=== PATIENT | male | born 1985 | race American Indian/Alaskan Native ===

== ENCOUNTER 2017-03-18 13:36 | Emergency (ER) | payer MEDICAID ==
[2017-03-18 14:27] LABS: Urine Drugs of Abuse Note Disclamer
[2017-03-18 14:43] LABS: Bilirubin,Urine NEG (Negative); Blood,Urine NEG (Negative); Ketones,Urine NEG (Negative); Leukocyte Esterase,Urine NEG (Negative); Nitrite,Urine NEG (Negative); Protein,Urine <15 mg/dL mg/dL (Negative); Urobilinogen,Urine < 2.0 mg/dL (<2.0)
[2017-03-18 14:48] LABS: Basophils % (Auto) 0.6 % (0.0-1.8); Eosinophils % (Auto) 6.4 % (0.0-4.3); Hematocrit 38.1 % (35.5-45.6); Hemoglobin 12.1 gm/dl (11.8-15.2); Mean Corpuscular HGB Conc 32 % (32-34); Mean Corpuscular Hemoglobin 28 pg (28-32); Mean Corpuscular Volume 87 fl (84-94); Platelet Count 121 K/mm3 (140-440); Red Blood Count 4.38 M/mm3 (3.65-5.03)
[2017-03-18 15:07] LABS: Anion Gap 18 mmol/L; BUN/Creatinine Ratio 30; Blood Urea Nitrogen 21 mg/dL (9-20); Calcium 9.2 mg/dL (8.4-10.2); Carbon Dioxide 26 mmol/L (22-30); Chloride 96.7 mmol/L (98-107); Glucose 302 mg/dL (75-100); Potassium 4.6 mmol/L (3.6-5.0); Sodium 136 mmol/L (137-145)
[2017-03-18] MEDS ORDERED: ATIVAN IM PRN (15:42)
[2017-03-18] MEDS ORDERED: ALUM-MAG HYDROX-SIMETH 200-200-20MG/5ML PO PRN (15:42)
[2017-03-18] MEDS ORDERED: TYLENOL PO PRN (15:42)
[2017-03-18] MEDS ORDERED: MILK OF MAGNESIA PO PRN (15:42)
--- NOTE | 2017-03-18 15:53 | Emergency Department Report ---
HPI - General Chief Complaint: Psych Time Seen by Provider: 03/18/17 14:24 - HPI HPI: The patient is a 32-year-old male presents for evaluation of mental health. The patient has history of schizophrenia. The patient and family members report that he has experienced auditory hallucinations instructed him to harm himself. The patient states that his symptoms have been severe and constant the past one day. The patient has been off of schizophrenia medications for weeks. The patient denies fever, headache, unexplained weight loss or weight gain, heat or cold intolerance, neuro deficits, homicidal ideations. The patient's family shares that the patient was discontinued from use on Depakote weeks ago, but that he never initiated the planned alternate medication. ED Past Medical Hx - Past Medical History Previous Medical History?: Yes Hx Diabetes: Yes Hx Psychiatric Treatment: Yes (schizophrenic, mild mr) - Social History Smoking Status: Never Smoker Substance Use Type: None - Medications Home Medications: Home Medications Medication Instructions Recorded Confirmed Last Taken Type Divalproex ER 1,000 mg PO QHS 08/13/15 03/18/17 Unknown History Haldol 10 mg PO BID 08/13/15 03/18/17 Unknown History metFORMIN 750 mg PO DAILY 08/13/15 03/18/17 Unknown History Benztropine [Cogentin] 2 mg PO BID 03/18/17 03/18/17 Unknown History ED Review of Systems ROS: Stated complaint: MENTAL HEALTH EVAUATION Other details as noted in HPI Constitutional: denies: fever ENT: denies: throat or neck pain Respiratory: denies: cough, shortness of breath Cardiovascular: denies: chest pain Endocrine: denies unexplained weight loss or gain Gastrointestinal: denies: abdominal pain, nausea Genitourinary: denies: dysuria Musculoskeletal: denies: leg swelling Skin: denies: rash Neurological: denies: headache Hematological/Lymphatic: denies: easy bleeding or easy bruising Psych: reports SI Physical Exam - Physical Exam Vital Signs: Vital Signs 03/18/17 14:07 Temperature 98.6 F Pulse Rate 80 Respiratory 18 Rate Blood Pressure 123/76 O2 Sat by Pulse 96 Oximetry Physical Exam: General: well-nourished, well-developed, no acute distress Head: Normocephalic, atraumatic Eyes: normal sclera ENT: Mucous membranes are pink and moist Neck: trachea midline, neck supple, No neck stiffness, no cervical adenopathy Respiratory: Breath sounds equal bilaterally, no wheezing, rales, or rhonchi Cardio: S1 and S2 present, no murmurs, rubs, gallops, capillary refill is brisk Abdomen: Normoactive bowel sounds, soft abdomen, no rigidity, no guarding or rebound tenderness Musc: No pitting edema Skin: No rash Neuro: no facial drooping, normal speech Psych: flat affect, patient delusional, poor insight, positive auditory hallucinations ED Course Vital Signs 03/18/17 14:07 Temperature 98.6 F Pulse Rate 80 Respiratory 18 Rate Blood Pressure 123/76 O2 Sat by Pulse 96 Oximetry ED Medical Decision Making - Lab Data Result diagrams: 03/18/17 14:29 03/18/17 14:29 - Medical Decision Making The patient was seen and examined by myself. The patient is placed on a box attacher and continuous pulse ox. On initial evaluation, the patient was found to be in no distress. Labs are obtained. Lab results are grossly unremarkable. The patient is medically clear. Mental health is consulted. Mental health evaluates the patient and agrees that the patient is at risk of harm to self. A 1013 is completed. The patient will be admitted to a psychiatric facility once bed placement is obtained. Critical care attestation.: If time is entered above; I have spent that time in minutes in the direct care of this critically ill patient, excluding procedure time. ED Disposition Clinical Impression: Acute schizophrenia episode Disposition: DC/TX-65 PSY HOSP/PSY UNIT Is pt being admited?: No Does the pt Need Aspirin: No Condition: Serious Referrals: STEFAN PAYNE [Other] - 3-5 Days Time of Disposition: 15:43
[2017-03-18] MEDS ORDERED: GLUCOPHAGE PO ONE (16:46)
[2017-03-18] MEDS: COGENTIN PO SCH (21:32)
[2017-03-19] MEDS ORDERED: GLUCOPHAGE PO SCH (10:00)
[2017-03-19] MEDS ORDERED: METFORMIN 750 MG PO SCH (10:00)
[2017-03-19] MEDS: COGENTIN PO SCH (11:12)
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
[2017-03-19 19:36] VITALS: BP 112/78
== END 2017-03-19 19:36 ==
LOC: ED 13:36 → EEVIPCON 13:36 → ED 03-19 19:36
DX: F23 Brief psychotic disorder (principal); R44.0 Auditory hallucinations; E11.9 Type 2 diabetes mellitus without complications
CPT/HCPCS: 36415; 80048; 80164; 80307; 81001; 82962; 85025; 99284; G0480; 80320

== ENCOUNTER 2017-04-06 23:54 | Emergency (ER) | payer MEDICAID ==
[2017-04-07 00:45] LABS: Bilirubin,Urine NEG (Negative); Blood,Urine NEG (Negative); Color,Urine Straw (Yellow); Mucus,Urine FEW /HPF; Nitrite,Urine NEG (Negative); Urobilinogen,Urine < 2.0 mg/dL (<2.0)
[2017-04-07 00:49] LABS: Basophils % (Auto) 0.9 % (0.0-1.8); Eosinophils # (Auto) 0.5 K/mm3 (0.0-0.4); Eosinophils % (Auto) 13.8 % (0.0-4.3); Hematocrit 38.4 % (35.5-45.6); Hemoglobin 12.2 gm/dl (11.8-15.2); Lymphocytes # (Auto) 1.2 K/mm3 (1.2-5.4); Lymphocytes % (Auto) 35.4 % (13.4-35.0); Mean Corpuscular HGB Conc 32 % (32-34); Mean Corpuscular Hemoglobin 28 pg (28-32); Mean Corpuscular Volume 87 fl (84-94); Monocytes # (Auto) 0.2 K/mm3 (0.0-0.8); Platelet Count 119 K/mm3 (140-440); Red Blood Count 4.41 M/mm3 (3.65-5.03); Red Cell Distribution Width 14.2 % (13.2-15.2)
[2017-04-07 00:51] LABS: Amphetamine Screen,Urine PRESUMPTIVE NEGATIVE; Benzodiazepines Screen,Urine PRESUMPTIVE NEGATIVE; Cannabinoid Screen,Urine PRESUMPTIVE NEGATIVE; Cocaine Screen,Urine PRESUMPTIVE NEGATIVE; Methadone Screen,Urine PRESUMPTIVE NEGATIVE; Opiate Screen,Urine PRESUMPTIVE NEGATIVE
[2017-04-07 00:55] LABS: BUN/Creatinine Ratio 30; Blood Urea Nitrogen 24 mg/dL (9-20); Calcium 9.2 mg/dL (8.4-10.2); Hemolysis Index 47
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
[2017-04-07] MEDS ORDERED: NACL 0.9% 1000 ML 2,000 ML IV ONE (06:33)
[2017-04-07 07:51] VITALS: BP 140/90
== END 2017-04-07 15:28 | disposition home or self-care (01) ==
LOC: ED 23:54 → EEVIPCON 23:54 → ED 04-07 15:28
DX: R45.1 Restlessness and agitation (principal); E86.0 Dehydration; E11.65 Type 2 diabetes mellitus with hyperglycemia; F20.9 Schizophrenia, unspecified; Z91.013 Allergy to seafood; Z91.012 Allergy to eggs; Z91.048 Other nonmedicinal substance allergy status
CPT/HCPCS: 36415; 80048; 80307; 81001; 82962; 85025; 96361; 96374; 99284; G0480; J7030; 80320; J1815

== ENCOUNTER 2017-04-16 13:12 | Emergency (ER) | payer MEDICAID, OTHER ==
[2017-04-16 14:26] VITALS: BP 122/73
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
== END 2017-04-16 20:20 | disposition home or self-care (01) ==
LOC: ED 13:12
DX: F39 Unspecified mood [affective] disorder (principal); E11.9 Type 2 diabetes mellitus without complications; F20.9 Schizophrenia, unspecified; Z91.013 Allergy to seafood; Z91.048 Other nonmedicinal substance allergy status; Z91.018 Allergy to other foods
CPT/HCPCS: 99283

== ENCOUNTER 2017-04-24 10:45 | Emergency (ER) | payer MEDICAID, OTHER ==
--- NOTE | 2017-04-24 11:05 | Emergency Department Report ---
ED Psych HPI - General Stated Complaint: MH Time Seen by Provider: 04/24/17 11:00 Source: family - History of Present Illness Initial Comments: Patient is 32 years old male history of schizophrenia brought by his mother. Mother stated that patient has been yelling, talking to himself being seen that are not there, breaking things in the house and very aggressive to her and to others. Patient is not communicating, he kept yelling and hitting on the wall. MD Complaint: altered mental status -: Gradual Associated Psychiatric Symptoms: auditory hallucinations, visual hallucinations , delusions Quality: constant - Related Data Home Medications Medication Instructions Recorded Confirmed Last Taken Divalproex ER 1,000 mg PO QHS 08/13/15 04/07/17 1 Day Ago ~04/06/17 Haldol 10 mg PO BID 08/13/15 04/07/17 1 Day Ago ~04/06/17 metFORMIN 750 mg PO DAILY 08/13/15 04/07/17 1 Day Ago ~04/06/17 Benztropine [Cogentin] 2 mg PO BID 03/18/17 04/07/17 1 Day Ago ~04/06/17 Allergies Allergy/AdvReac Type Severity Reaction Status Date / Time shrimp Allergy Mild Hives Verified 03/18/17 14:07 dog dander Allergy Hives Verified 03/18/17 14:07 rice Allergy Itching Verified 03/18/17 14:07 EGGS Allergy Rash Uncoded 08/14/15 10:48 ED Review of Systems ROS: Stated complaint: MH Other details as noted in HPI Comment: Unobtainable due to pts medical conditions ED Past Medical Hx - Past Medical History Hx Diabetes: Yes Hx Psychiatric Treatment: Yes (schizophrenic, mild mr) - Social History Smoking Status: Never Smoker - Medications Home Medications: Home Medications Medication Instructions Recorded Confirmed Last Taken Type Divalproex ER 1,000 mg PO QHS 08/13/15 04/07/17 1 Day Ago History ~04/06/17 Haldol 10 mg PO BID 08/13/15 04/07/17 1 Day Ago History ~04/06/17 metFORMIN 750 mg PO DAILY 08/13/15 04/07/17 1 Day Ago History ~04/06/17 Benztropine [Cogentin] 2 mg PO BID 03/18/17 04/07/17 1 Day Ago History ~04/06/17 ED Physical Exam - General General appearance: alert, anxious, other (is very agitated) - Head Head exam: Present: atraumatic, normocephalic, normal inspection - Eye Eye exam: Present: normal appearance, PERRL - ENT ENT exam: Present: normal exam, normal orophraynx, mucous membranes moist - Neck Neck exam: Present: normal inspection, full ROM. Absent: tenderness, meningismus, lymphadenopathy, thyromegaly - Respiratory Respiratory exam: Present: normal lung sounds bilaterally. Absent: respiratory distress, wheezes, rales, rhonchi, chest wall tenderness, accessory muscle use, decreased breath sounds, prolonged expiratory - Cardiovascular Cardiovascular Exam: Present: regular rate, normal rhythm, normal heart sounds - GI/Abdominal GI/Abdominal exam: Present: soft, normal bowel sounds. Absent: tenderness, guarding, rebound, rigid, mass, bruit, pulsatile mass - Extremities Exam Extremities exam: Present: normal inspection, full ROM, normal capillary refill - Back Exam Back exam: Present: normal inspection. Absent: tenderness, CVA tenderness (R), CVA tenderness (L) - Neurological Exam Neurological exam: Present: alert, normal gait, reflexes normal. Absent: motor sensory deficit - Psychiatric Psychiatric exam: Present: agitated, manic - Skin Skin exam: Present: warm, intact, normal color Critical care attestation.: If time is entered above; I have spent that time in minutes in the direct care of this critically ill patient, excluding procedure time. ED Disposition Clinical Impression: Acute psychosis Disposition: DC/TX-65 PSY HOSP/PSY UNIT Is pt being admited?: No Condition: Stable Referrals: PRIMARY CARE, [Primary Care Provider] - 3-5 Days
[2017-04-24] MEDS ORDERED: GEODON IM ONE (12:12)
[2017-04-24 12:21] LABS: Albumin 3.5 g/dL (3.9-5); BUN/Creatinine Ratio 20; Blood Urea Nitrogen 14 mg/dL (9-20); Calcium 9.8 mg/dL (8.4-10.2); Hemolysis Index 474
[2017-04-24 12:39] LABS: Alanine Aminotransferase 12 units/L (7-56)
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
[2017-04-24 14:03] LABS: Hematocrit 39.7 % (35.5-45.6); Hemoglobin 12.7 gm/dl (11.8-15.2); Mean Corpuscular HGB Conc 32 % (32-34); Mean Corpuscular Hemoglobin 27 pg (28-32); Mean Corpuscular Volume 86 fl (84-94); Platelet Count 125 K/mm3 (140-440); Red Blood Count 4.64 M/mm3 (3.65-5.03); Red Cell Distribution Width 14.1 % (13.2-15.2)
[2017-04-24 15:04] LABS: Basophils % (Manual) 0 % (0.0-1.8); Total Cells Counted 100; Toxic Vacuolation 1+
[2017-04-24 15:05] LABS: Anisocytosis 1+; Poikilocytosis Few; Tear Drop Cells Few
[2017-04-24 15:06] LABS: Platelet Estimate Cons
[2017-04-24] MEDS ORDERED: GLUCOPHAGE PO ONE (23:15)
[2017-04-25] MEDS: GLUCOPHAGE PO SCH (07:43)
[2017-04-25] MEDS ORDERED: TYLENOL ONE (08:58)
[2017-04-25] MEDS ORDERED: TYLENOL PO ONE (09:00)
[2017-04-25 09:48] LABS: Bacteria,Urine 1+ /HPF (Negative); Bilirubin,Urine NEG (Negative); Blood,Urine NEG (Negative); Color,Urine Amber (Yellow); Mucus,Urine 3+ /HPF; Nitrite,Urine NEG (Negative)
--- NOTE | 2017-04-25 10:06 | XRay Report ---
AP CHEST: HISTORY: Cough AP view of the chest demonstrates a normal mediastinal and cardiac contour with clear lungs and normal bony and soft tissue structures. IMPRESSION: Unremarkable AP chest.
[2017-04-25 11:09] LABS: Amphetamine Screen,Urine PRESUMPTIVE NEGATIVE; Cannabinoid Screen,Urine PRESUMPTIVE NEGATIVE; Cocaine Screen,Urine PRESUMPTIVE NEGATIVE; Methadone Screen,Urine PRESUMPTIVE NEGATIVE; Opiate Screen,Urine PRESUMPTIVE NEGATIVE
[2017-04-25 11:27] LABS: Benzodiazepines Screen,Urine PRESUMPTIVE POSITIVE
[2017-04-26] MEDS: GLUCOPHAGE PO SCH (08:20)
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
--- NOTE | 2017-04-26 13:57 | Emergency Department Report ---
Blank Doc - Documentation Documentation: She was seen by psych atomic welder several times. Patient is calm down significantly and was deemed safe to return home. Patient not having any suicidal or homicidal ideations. The patient had 1013 rescind it by me at 1355
[2017-04-26 15:32] VITALS: BP 112/70
== END 2017-04-26 15:33 | disposition home or self-care (01) ==
LOC: ED 10:45 → EEVIPCON 10:45 → ED 04-26 15:33
DX: F23 Brief psychotic disorder (principal); E11.9 Type 2 diabetes mellitus without complications; F20.9 Schizophrenia, unspecified; Z91.013 Allergy to seafood; Z91.012 Allergy to eggs
CPT/HCPCS: 36415; 71045; 80053; 80164; 80307; 81001; 82962; 85007; 85025; 96372; 99284; G0480; 80320

== ENCOUNTER 2017-07-29 01:09 | Emergency (ER) | payer MEDICAID ==
[2017-07-29 02:48] LABS: Bilirubin,Urine NEG (Negative); Blood,Urine NEG (Negative); Color,Urine Yellow (Yellow); Protein,Urine <15 mg/dL mg/dL (Negative); Urobilinogen,Urine < 2.0 mg/dL (<2.0); WBC,Urine < 1.0 /HPF (0.0-6.0)
[2017-07-29 02:51] LABS: Basophils % (Auto) 0.4 % (0.0-1.8); Eosinophils # (Auto) 0.4 K/mm3 (0.0-0.4); Eosinophils % (Auto) 9.9 % (0.0-4.3); Hematocrit 39.1 % (35.5-45.6); Hemoglobin 12.9 gm/dl (11.8-15.2); Lymphocytes # (Auto) 1.3 K/mm3 (1.2-5.4); Lymphocytes % (Auto) 35.4 % (13.4-35.0); Mean Corpuscular HGB Conc 33 % (32-34); Mean Corpuscular Hemoglobin 28 pg (28-32); Mean Corpuscular Volume 84 fl (84-94); Monocytes # (Auto) 0.4 K/mm3 (0.0-0.8); Monocytes % (Auto) 9.5 % (0.0-7.3); Platelet Count 116 K/mm3 (140-440); Red Blood Count 4.68 M/mm3 (3.65-5.03); Red Cell Distribution Width 14.4 % (13.2-15.2)
[2017-07-29 02:55] LABS: BUN/Creatinine Ratio 31; Blood Urea Nitrogen 25 mg/dL (9-20); Calcium 9.4 mg/dL (8.4-10.2); Hemolysis Index 11
[2017-07-29 02:58] LABS: Amphetamine Screen,Urine PRESUMPTIVE NEGATIVE; Benzodiazepines Screen,Urine PRESUMPTIVE NEGATIVE; Cannabinoid Screen,Urine PRESUMPTIVE NEGATIVE; Cocaine Screen,Urine PRESUMPTIVE NEGATIVE; Methadone Screen,Urine PRESUMPTIVE NEGATIVE; Opiate Screen,Urine PRESUMPTIVE NEGATIVE
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
--- NOTE | 2017-07-29 19:43 | XRay Report ---
FINAL REPORT EXAM: XR CHEST 1V AP HISTORY: edema TECHNIQUE: Single, portable chest x-ray. PRIORS: None. FINDINGS: Cardiac and mediastinal silhouette within normal limits. Lungs are mildly hypoinflated, with probable mild left basilar atelectasis. No significant vascular congestion, focal consolidation or apparent pneumothorax. Bony thorax grossly unremarkable. IMPRESSION: 1. No acute findings.
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
[2017-07-30 14:40] VITALS: BP 121/53
--- NOTE | 2017-07-30 15:38 | Emergency Department Report ---
HPI - General Chief Complaint: Psych Time Seen by Provider: 07/29/17 04:18 - HPI HPI: Patient's labs and vitals have been reviewed. He has been medically clear for some time. Evaluated by psychiatry and deemed safe to go home. He'll be discharged into his mother's care. Patient is directable and agreeable at this time. Cleared for discharge. ED Past Medical Hx - Past Medical History Previous Medical History?: Yes Hx Diabetes: Yes Hx Psychiatric Treatment: Yes (schizophrenic, mild mr) - Surgical History Past Surgical History?: No - Social History Smoking Status: Never Smoker - Medications Home Medications: Home Medications Medication Instructions Recorded Confirmed Last Taken Type Divalproex ER 1,000 mg PO QHS 08/13/15 07/29/17 1 Day Ago History ~04/06/17 Haldol 10 mg PO BID 08/13/15 07/29/17 1 Day Ago History ~04/06/17 metFORMIN 750 mg PO DAILY 08/13/15 07/29/17 1 Day Ago History ~04/06/17 Benztropine [Cogentin] 2 mg PO BID 03/18/17 07/29/17 1 Day Ago History ~04/06/17 ED Review of Systems ROS: Stated complaint: MENTAL HEALTH Other details as noted in HPI Physical Exam - Physical Exam Vital Signs: Vital Signs 07/29/17 07/30/17 07/30/17 21:00 09:07 10:00 Temperature 98.7 F 98.5 F Pulse Rate 82 95 H Respiratory 18 16 13 Rate Blood Pressure 109/70 121/53 [Left] O2 Sat by Pulse 97 97 Oximetry ED Course Vital Signs 07/29/17 07/30/17 07/30/17 21:00 09:07 10:00 Temperature 98.7 F 98.5 F Pulse Rate 82 95 H Respiratory 18 16 13 Rate Blood Pressure 109/70 121/53 [Left] O2 Sat by Pulse 97 97 Oximetry ED Medical Decision Making - Lab Data Result diagrams: 07/29/17 02:29 07/29/17 02:29 Critical care attestation.: If time is entered above; I have spent that time in minutes in the direct care of this critically ill patient, excluding procedure time. ED Disposition Clinical Impression: Adjustment disorder Disposition: DC-01 TO HOME OR SELFCARE Is pt being admited?: No Does the pt Need Aspirin: No Condition: Stable Referrals: DICRISTINA,ALETHEA, MD [Primary Care Provider] - 3-5 Days Print Language: PERSIAN
== END 2017-07-30 19:09 | disposition home or self-care (01) ==
LOC: ED 01:09
DX: F43.20 Adjustment disorder, unspecified (principal); E11.9 Type 2 diabetes mellitus without complications; F20.9 Schizophrenia, unspecified; Z91.013 Allergy to seafood; Z91.012 Allergy to eggs
CPT/HCPCS: 36415; 71045; 80048; 80164; 80307; 81001; 85025; 99284; G0480; 80320

== ENCOUNTER 2018-01-07 10:19 | Outpatient (CLI) | payer MEDICAID ==
[2018-01-07] MEDS ORDERED: XYLOCAINE TOPICAL 4% TP ONE ×2 (11:29→16:19)
== END 2018-01-07 10:20 | disposition home or self-care (01) ==
LOC: WOUND 10:19
PROVIDERS: ATTEND Surgery
DX: S81.801A Unspecified open wound, right lower leg, initial encounter (principal); S81.802A Unspecified open wound, left lower leg, initial encounter; S01.401A Unspecified open wound of right cheek and temporomandibular area, initial encounter; S51.801A Unspecified open wound of right forearm, initial encounter; X58.XXXA Exposure to other specified factors, initial encounter; Y93.89 Activity, other specified; Y92.89 Other specified places as the place of occurrence of the external cause; Y99.8 Other external cause status
CPT/HCPCS: 11042; 87075; 87116; G0463; 87076; 87186; 99215

== ENCOUNTER 2018-01-14 08:57 | Outpatient (CLI) | payer MEDICAID | END 2018-01-14 08:58 | disposition home or self-care (01) | LOC: WOUND 08:57 | PROVIDERS: ATTEND Surgery | DX: S81.801D Unspecified open wound, right lower leg, subsequent encounter (principal); S81.802D Unspecified open wound, left lower leg, subsequent encounter; S01.401D Unspecified open wound of right cheek and temporomandibular area, subsequent encounter; S51.801D Unspecified open wound of right forearm, subsequent encounter; X58.XXXD Exposure to other specified factors, subsequent encounter | CPT/HCPCS: 99214; G0463 ==

== ENCOUNTER 2018-01-21 08:58 | Outpatient (CLI) | payer MEDICAID | END 2018-01-21 08:59 | disposition home or self-care (01) | LOC: WOUND 08:58 | PROVIDERS: ATTEND Surgery | DX: S81.801D Unspecified open wound, right lower leg, subsequent encounter (principal); S81.802D Unspecified open wound, left lower leg, subsequent encounter; S01.401D Unspecified open wound of right cheek and temporomandibular area, subsequent encounter; S51.801D Unspecified open wound of right forearm, subsequent encounter; X58.XXXD Exposure to other specified factors, subsequent encounter | CPT/HCPCS: 99214; G0463 ==

== ENCOUNTER 2018-02-04 09:01 | Outpatient (CLI) | payer MEDICAID ==
[2018-02-04] MEDS ORDERED: XYLOCAINE TOPICAL 4% TP ONE ×2 (09:42→15:50)
[2018-02-04] MEDS ORDERED: AD OINTMENT TP ONE (10:10)
== END 2018-02-04 09:02 | disposition home or self-care (01) ==
LOC: WOUND 09:01
PROVIDERS: ATTEND Surgery
DX: S81.802D Unspecified open wound, left lower leg, subsequent encounter (principal); S01.401D Unspecified open wound of right cheek and temporomandibular area, subsequent encounter; S51.801D Unspecified open wound of right forearm, subsequent encounter; X58.XXXD Exposure to other specified factors, subsequent encounter
CPT/HCPCS: 99214; A6250; G0463

== ENCOUNTER 2018-04-24 07:57 | Outpatient (CLI) | payer MEDICAID | END 2018-04-24 07:58 | disposition home or self-care (01) | LOC: WOUND 07:57 ==

== ENCOUNTER 2018-04-29 08:13 | Outpatient (CLI) | payer MEDICAID ==
[2018-04-29] MEDS ORDERED: AD OINTMENT TP PRN (09:08)
== END 2018-04-29 08:14 | disposition home or self-care (01) ==
LOC: WOUND 08:13
PROVIDERS: ATTEND Surgery
DX: S41.002D Unspecified open wound of left shoulder, subsequent encounter (principal); L02.222 Furuncle of back [any part, except buttock and flank]; L02.423 Furuncle of right upper limb; F20.9 Schizophrenia, unspecified; X58.XXXD Exposure to other specified factors, subsequent encounter
CPT/HCPCS: 99214; A6250; G0463

== ENCOUNTER 2019-07-05 16:18 | Emergency (ER) | payer MEDICAID ==
[2019-07-05] MEDS ORDERED: ZIPRASIDONE MESYLATE 20 MG VIAL IM ONE ×2 (16:25→16:40)
[2019-07-05] MEDS ORDERED: LORazepam 2 MG/ML VIAL ONE (16:26)
[2019-07-05] MEDS ORDERED: LORazepam 2 MG/ML VIAL IV ONE (16:40)
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
[2019-07-05 21:16] LABS: Basophils % (Auto) 0.6 % (0.0-1.8); Eosinophils # (Auto) 0.2 K/mm3 (0.0-0.4); Eosinophils % (Auto) 5.1 % (0.0-4.3); Hematocrit 40.4 % (35.5-45.6); Hemoglobin 12.6 gm/dl (11.8-15.2); Lymphocytes # (Auto) 1.2 K/mm3 (1.2-5.4); Lymphocytes % (Auto) 29.5 % (13.4-35.0); Mean Corpuscular HGB Conc 31 % (32-34); Mean Corpuscular Volume 80 fl (84-94); Monocytes # (Auto) 0.4 K/mm3 (0.0-0.8); Monocytes % (Auto) 10.4 % (0.0-7.3); Platelet Count 155 K/mm3 (140-440); Red Blood Count 5.03 M/mm3 (3.65-5.03); Red Cell Distribution Width 15.8 % (13.2-15.2)
[2019-07-05 21:20] LABS: BUN/Creatinine Ratio 25; Blood Urea Nitrogen 20 mg/dL (9-20); Calcium 9.6 mg/dL (8.4-10.2); Hemolysis Index 6
[2019-07-06 07:47] VITALS: BP 122/83
[2019-07-06] MEDS ORDERED: QUEtiapine 200 MG TAB PO SCH (11:00)
[2019-07-06 11:56] LABS: Bilirubin,Urine NEG (Negative); Blood,Urine NEG (Negative); Color,Urine Yellow (Yellow); Mucus,Urine FEW /HPF; Protein,Urine <15 mg/dL mg/dL (Negative); Urobilinogen,Urine < 2.0 mg/dL (<2.0)
[2019-07-06 12:03] LABS: Amphetamine Screen,Urine PRESUMPTIVE NEGATIVE; Benzodiazepines Screen,Urine PRESUMPTIVE NEGATIVE; Cannabinoid Screen,Urine PRESUMPTIVE NEGATIVE; Cocaine Screen,Urine PRESUMPTIVE NEGATIVE; Methadone Screen,Urine PRESUMPTIVE NEGATIVE; Opiate Screen,Urine PRESUMPTIVE NEGATIVE
== END 2019-07-06 15:25 ==
LOC: ED 16:18
DX: R45.851 Suicidal ideations (principal); F29 Unspecified psychosis not due to a substance or known physiological condition; F20.9 Schizophrenia, unspecified; Z79.899 Other long term (current) drug therapy; Z91.012 Allergy to eggs; Z88.8 Allergy status to other drugs, medicaments and biological substances
CPT/HCPCS: 36415; 80048; 80307; 81001; 82962; 85025; 96372; 96374; 99285; J2060; J3486; 80320; G0480

== ENCOUNTER 2019-08-21 22:38 | Emergency (ER) | payer MEDICAID ==
--- NOTE | 2019-08-21 23:07 | Emergency Department Report ---
ED Psych HPI - General Chief Complaint: Medical Clearance Stated Complaint: SCHIZOPHRENIA EPISODE/MH Time Seen by Provider: 08/21/19 22:53 Source: EMS Mode of arrival: Ambulatory - History of Present Illness Initial Comments: Patient is 34 years old male with history of schizoaffective disorder and mild MR. Patient brought to the emergency room via EMS from home after family r eported that patient is having intermittent episode of outburst at home. Family informed EMS that patient is out of his medication for the last 2 days. In the emergency room patient is calm and cooperative and asking when he will be able to go back home. Patient denied suicidal or homicidal ideation. He also denied any auditory or visual hallucination. - Related Data Home Medications Medication Instructions Recorded Confirmed Last Taken Divalproex ER 1,000 mg PO QHS 08/13/15 07/06/19 1 Day Ago ~04/06/17 Haldol 10 mg PO BID 08/13/15 07/06/19 1 Day Ago ~04/06/17 metFORMIN 750 mg PO DAILY 08/13/15 07/06/19 1 Day Ago ~04/06/17 Benztropine [Cogentin] 2 mg PO BID 03/18/17 07/06/19 1 Day Ago ~04/06/17 Previous Rx's Medication Instructions Recorded Last Taken Type QUEtiapine [SEROquel] 200 mg PO BID #60 tablet 07/06/19 Unknown Rx Allergies Allergy/AdvReac Type Severity Reaction Status Date / Time shrimp Allergy Mild Hives Verified 03/18/17 14:07 dog dander Allergy Hives Verified 03/18/17 14:07 rice Allergy Itching Verified 03/18/17 14:07 EGGS Allergy Rash Uncoded 08/14/15 10:48 ED Review of Systems ROS: Stated complaint: SCHIZOPHRENIA EPISODE/MH Other details as noted in HPI Comment: All other systems reviewed and negative Constitutional: denies: chills, fever Respiratory: denies: cough, orthopnea, shortness of breath, SOB with exertion Cardiovascular: denies: chest pain, palpitations Gastrointestinal: denies: abdominal pain, nausea Musculoskeletal: denies: back pain Neurological: denies: headache, weakness, numbness, paresthesias Psychiatric: denies: anxiety, depression, auditory hallucinations, visual hallucinations, homicidal thoughts, suicidal thoughts ED Past Medical Hx - Past Medical History Previous Medical History?: Yes Hx Diabetes: Yes Hx Psychiatric Treatment: Yes (schizophrenic, mild mr) - Surgical History Past Surgical History?: No - Social History Smoking Status: Unknown if ever smoked - Medications Home Medications: Home Medications Medication Instructions Recorded Confirmed Last Taken Type Divalproex ER 1,000 mg PO QHS 08/13/15 07/06/19 1 Day Ago History ~04/06/17 Haldol 10 mg PO BID 08/13/15 07/06/19 1 Day Ago History ~04/06/17 metFORMIN 750 mg PO DAILY 08/13/15 07/06/19 1 Day Ago History ~04/06/17 Benztropine [Cogentin] 2 mg PO BID 03/18/17 07/06/19 1 Day Ago History ~04/06/17 QUEtiapine [SEROquel] 200 mg PO BID #60 tablet 07/06/19 Unknown Rx ED Physical Exam - General Limitations: Altered Mental Status General appearance: alert, in no apparent distress - Head Head exam: Present: atraumatic, normocephalic, normal inspection - Eye Eye exam: Present: normal appearance, PERRL - ENT ENT exam: Present: normal exam, normal orophraynx, mucous membranes moist - Neck Neck exam: Present: normal inspection, full ROM. Absent: tenderness, meningismus, lymphadenopathy, thyromegaly - Respiratory Respiratory exam: Present: normal lung sounds bilaterally - Cardiovascular Cardiovascular Exam: Present: regular rate, normal rhythm, normal heart sounds - GI/Abdominal GI/Abdominal exam: Present: soft, normal bowel sounds. Absent: distended, tenderness, guarding, rebound, rigid, organomegaly, mass, bruit, pulsatile mass, hernia - Extremities Exam Extremities exam: Present: normal inspection, full ROM, normal capillary refill. Absent: tenderness, pedal edema, calf tenderness - Back Exam Back exam: Present: normal inspection, full ROM. Absent: CVA tenderness (R), CVA tenderness (L) - Neurological Exam Neurological exam: Present: alert, oriented X3, CN II-XII intact, normal gait, reflexes normal. Absent: motor sensory deficit - Psychiatric Psychiatric exam: Present: normal mood. Absent: manic, homicidal ideation, suicidal ideation - Skin Skin exam: Present: warm, intact, normal color ED Course Vital Signs 08/21/19 23:02 Temperature 97.8 F Pulse Rate 90 Respiratory 16 Rate Blood Pressure 111/76 [Left] O2 Sat by Pulse 100 Oximetry Critical care attestation.: If time is entered above; I have spent that time in minutes in the direct care of this critically ill patient, excluding procedure time. ED Disposition Clinical Impression: Schizoaffective disorder Condition: Stable
[2019-08-22 00:13] LABS: Bilirubin,Urine NEG (Negative); Blood,Urine NEG (Negative); Color,Urine Straw (Yellow); Protein,Urine <15 mg/dL mg/dL (Negative); Urobilinogen,Urine < 2.0 mg/dL (<2.0)
[2019-08-22 00:15] LABS: Amphetamine Screen,Urine PRESUMPTIVE NEGATIVE; Benzodiazepines Screen,Urine PRESUMPTIVE NEGATIVE; Cannabinoid Screen,Urine PRESUMPTIVE NEGATIVE; Cocaine Screen,Urine PRESUMPTIVE NEGATIVE; Methadone Screen,Urine PRESUMPTIVE NEGATIVE; Opiate Screen,Urine PRESUMPTIVE NEGATIVE
[2019-08-22 00:51] LABS: Eosinophils # (Auto) 0.1 K/mm3 (0.0-0.4); Eosinophils % (Auto) 3.4 % (0.0-4.3); Hematocrit 39.8 % (35.5-45.6); Hemoglobin 12.9 gm/dl (11.8-15.2); Lymphocytes # (Auto) 1.1 K/mm3 (1.2-5.4); Lymphocytes % (Auto) 27.7 % (13.4-35.0); Mean Corpuscular HGB Conc 32 % (32-34); Mean Corpuscular Volume 78 fl (84-94); Monocytes # (Auto) 0.2 K/mm3 (0.0-0.8); Monocytes % (Auto) 6.1 % (0.0-7.3); Platelet Count 164 K/mm3 (140-440); Red Blood Count 5.11 M/mm3 (3.65-5.03); Red Cell Distribution Width 15.9 % (13.2-15.2)
[2019-08-22 08:28] LABS: BUN/Creatinine Ratio 16; Blood Urea Nitrogen 16 mg/dL (9-20); Calcium 9.5 mg/dL (8.4-10.2); Hemolysis Index 2
[2019-08-22 19:58] VITALS: BP 118/75
[2019-08-23] MEDS ORDERED: ZIPRASIDONE MESYLATE 20 MG VIAL IM ONE (03:19)
[2019-08-23] MEDS ORDERED: LORazepam 2 MG/ML VIAL IM ONE (03:20)
== END 2019-08-23 10:15 | disposition home or self-care (01) ==
LOC: ED 22:38
DX: F20.9 Schizophrenia, unspecified (principal); E11.9 Type 2 diabetes mellitus without complications; Z98.890 Other specified postprocedural states; Z79.899 Other long term (current) drug therapy; Z91.018 Allergy to other foods; Z88.8 Allergy status to other drugs, medicaments and biological substances; Z91.013 Allergy to seafood; Z79.84 Long term (current) use of oral hypoglycemic drugs
CPT/HCPCS: 36415; 80307; 81001; 82962; 93005; J2060; J3486

== ENCOUNTER 2020-01-19 16:28 | Emergency (ER) | payer MEDICAID ==
[2020-01-19] MEDS ORDERED: LORazepam 1 MG TAB PO ONE (16:51)
--- NOTE | 2020-01-19 16:54 | Emergency Department Report ---
HPI - General PUI?: No - HPI HPI: Room 17 The patient is a 35-year-old male with a history of schizophrenia and mental retardation presenting with a chief complaint of combative behavior. Patient brought in after being combative with family. EMS was called upon EMS arrival the patient began screaming and yelling and banging his head. Upon arrival to the ED the patient has been calm. During the interview the patient becomes tearful and states that he just wants to go home. Patient denies suicidal ideation. Patient denies any complaints <GARCÍA SILVEIRA - Last Filed: 01/19/20 22:55> <CARYN BRSAWELL - Last Filed: 01/21/20 12:11> - General Time Seen by Provider: 01/19/20 16:46 ED Past Medical Hx - Past Medical History Hx Diabetes: Yes (Diabetes) Hx Psychiatric Treatment: Yes (schizophrenia, mild mr) - Surgical History Past Surgical History?: No - Family History Family history: no significant - Social History Smoking Status: Never Smoker Substance Use Type: None (Denies illicit drug use) <GARCÍA SILVEIRA - Last Filed: 01/19/20 22:55> <CARYN BRASWELL - Last Filed: 01/21/20 12:11> - Medications Home Medications: Home Medications Medication Instructions Recorded Confirmed Last Taken Type metFORMIN 500 mg PO BID 08/13/15 01/20/20 1 Day Ago History ~04/06/17 Amitriptyline [Elavil] 50 mg PO DAILY 01/20/20 01/20/20 Unknown History Insulin Glargine [Lantus VIAL] 23 units SUB-Q QPM 01/20/20 01/20/20 Unknown History LORazepam [Lorazepam] 2 mg PO PRN PRN 01/20/20 01/20/20 Unknown History OLANZapine [Zyprexa] 15 mg PO QPM #30 tab 01/21/20 Unknown Rx OXcarbazepine [Trileptal] 300 mg PO BID #60 tab 01/21/20 Unknown Rx Ziprasidone [Geodon] 60 mg PO BID #60 cap 01/21/20 Unknown Rx ED Review of Systems ROS: Stated complaint: PSYCH EPISODE Other details as noted in HPI Constitutional: no symptoms reported Respiratory: no symptoms reported Endocrine: no symptoms reported Psychiatric: denies: suicidal thoughts <GARCÍA SILVEIRA - Last Filed: 01/19/20 22:55> ROS: Stated complaint: PSYCH EPISODE Other details as noted in HPI <MARBIN BRASWELLNETTA - Last Filed: 01/21/20 12:11> Physical Exam - Physical Exam Physical Exam: GENERAL: The patient is well-nourished male lying on stretcher not appearing to be in acute distress. [] HEENT: Normocephalic. Atraumatic. Extraocular motions are intact. Patient has moist mucous membranes. NECK: Supple. Trachea midline CHEST/LUNGS: Clear to auscultation. There is no respiratory distress noted. HEART/CARDIOVASCULAR: Regular. There is no tachycardia. There is no gallop rub or murmur. ABDOMEN: Abdomen is soft, nontender. Patient has normal bowel sounds. There is no abdominal distention. SKIN: There is no rash. There is no edema. There is no diaphoresis. NEURO: The patient is awake, alert, and oriented. The patient is cooperative. The patient has normal speech MUSCULOSKELETAL: There is no evidence of acute injury. <GARCÍA SILVEIRA - Last Filed: 01/19/20 22:55> - Physical Exam Vital Signs: Vital Signs 01/19/20 01/19/20 01/20/20 16:52 19:40 02:09 Temperature 98.2 F 97.6 F 97.6 F Pulse Rate 95 H 80 77 Respiratory 18 16 18 Rate Blood Pressure 128/83 138/86 143/88 [Right] O2 Sat by Pulse 100 100 99 Oximetry 01/20/20 01/20/20 01/20/20 08:56 14:10 20:05 Temperature 97.4 F L 97.9 F Pulse Rate 74 100 H 102 H Respiratory 18 16 18 Rate Blood Pressure 106/66 101/75 124/82 [Right] O2 Sat by Pulse 100 100 99 Oximetry 01/21/20 01/21/20 01/21/20 02:16 08:00 08:48 Temperature 97.6 F 98.6 F Pulse Rate 93 H 85 Respiratory 18 20 Rate Blood Pressure 118/73 114/71 [Right] O2 Sat by Pulse 99 100 Oximetry <MARBIN BRASWELLNETTA - Last Filed: 01/21/20 12:11> ED Course Vital Signs 01/19/20 01/19/20 01/20/20 16:52 19:40 02:09 Temperature 98.2 F 97.6 F 97.6 F Pulse Rate 95 H 80 77 Respiratory 18 16 18 Rate Blood Pressure 128/83 138/86 143/88 [Right] O2 Sat by Pulse 100 100 99 Oximetry 01/20/20 01/20/20 01/20/20 08:56 14:10 20:05 Temperature 97.4 F L 97.9 F Pulse Rate 74 100 H 102 H Respiratory 18 16 18 Rate Blood Pressure 106/66 101/75 124/82 [Right] O2 Sat by Pulse 100 100 99 Oximetry 01/21/20 01/21/20 01/21/20 02:16 08:00 08:48 Temperature 97.6 F 98.6 F Pulse Rate 93 H 85 Respiratory 18 20 Rate Blood Pressure 118/73 114/71 [Right] O2 Sat by Pulse 99 100 Oximetry <CARYN BRASWELL - Last Filed: 01/21/20 12:11> ED Medical Decision Making - Lab Data Result diagrams: 01/19/20 17:40 01/19/20 17:40 Laboratory Tests 01/19/20 01/19/20 01/19/20 17:40 17:40 17:40 WBC 3.8 L RBC 4.98 Hgb 13.8 Hct 41.9 MCV 84 MCH 28 MCHC 33 RDW 14.0 Plt Count 151 Lymph % (Auto) 25.4 [place] % (Auto) 5.7 Eos % (Auto) 2.7 Baso % (Auto) 0.6 Lymph # (Auto) 1.0 L [place] # (Auto) 0.2 Eos # (Auto) 0.1 Baso # (Auto) 0.0 Seg Neutrophils % 65.6 Seg Neutrophils # 2.5 Sodium 133 L Potassium 4.5 Chloride 94.6 L Carbon Dioxide 28 Anion Gap 15 BUN 18 Creatinine 0.7 L Estimated GFR > 60 BUN/Creatinine Ratio 26 Glucose 361 H Calcium 9.9 Urine Color Urine Turbidity Urine pH Ur Specific [place] Urine Protein Urine Glucose (UA) Urine Ketones Urine Blood Urine Nitrite Urine Bilirubin Urine Urobilinogen Ur Leukocyte Esterase Urine WBC (Auto) Urine RBC (Auto) Salicylates < 0.3 L Urine Opiates Screen Urine Methadone Screen Acetaminophen Ur Barbiturates Screen Ur Phencyclidine Scrn Ur Amphetamines Screen U Benzodiazepines Scrn Urine Cocaine Screen U Marijuana (THC) Screen Drugs of Abuse Note Plasma/Serum Alcohol 01/19/20 01/19/20 01/19/20 17:40 17:40 17:46 WBC RBC Hgb Hct MCV MCH MCHC RDW Plt Count Lymph % (Auto) [place] % (Auto) Eos % (Auto) Baso % (Auto) Lymph # (Auto) [place] # (Auto) Eos # (Auto) Baso # (Auto) Seg Neutrophils % Seg Neutrophils # Sodium Potassium Chloride Carbon Dioxide Anion Gap BUN Creatinine Estimated GFR BUN/Creatinine Ratio Glucose Calcium Urine Color Straw Urine Turbidity Clear Urine pH 7.0 Ur Specific [place] 1.028 Urine Protein <15 mg/dl Urine Glucose (UA) >=500 Urine Ketones Neg Urine Blood Neg Urine Nitrite Neg Urine Bilirubin Neg Urine Urobilinogen < 2.0 Ur Leukocyte Esterase Neg Urine WBC (Auto) 1.0 Urine RBC (Auto) 1.0 Salicylates Urine Opiates Screen Urine Methadone Screen Acetaminophen 5.0 L Ur Barbiturates Screen Ur Phencyclidine Scrn Ur Amphetamines Screen U Benzodiazepines Scrn Urine Cocaine Screen U Marijuana (THC) Screen Drugs of Abuse Note Plasma/Serum Alcohol < 0.01 01/19/20 17:46 WBC RBC Hgb Hct MCV MCH MCHC RDW Plt Count Lymph % (Auto) [place] % (Auto) Eos % (Auto) Baso % (Auto) Lymph # (Auto) [place] # (Auto) Eos # (Auto) Baso # (Auto) Seg Neutrophils % Seg Neutrophils # Sodium Potassium Chloride Carbon Dioxide Anion Gap BUN Creatinine Estimated GFR BUN/Creatinine Ratio Glucose Calcium Urine Color Urine Turbidity Urine pH Ur Specific [place] Urine Protein Urine Glucose (UA) Urine Ketones Urine Blood Urine Nitrite Urine Bilirubin Urine Urobilinogen Ur Leukocyte Esterase Urine WBC (Auto) Urine RBC (Auto) Salicylates Urine Opiates Screen Presumptive negative Urine Methadone Screen Presumptive negative Acetaminophen Ur Barbiturates Screen Presumptive negative Ur Phencyclidine Scrn Presumptive negative Ur Amphetamines Screen Presumptive negative U Benzodiazepines Scrn Presumptive negative Urine Cocaine Screen Presumptive negative U Marijuana (THC) Screen Presumptive negative Drugs of Abuse Note Disclamer Plasma/Serum Alcohol - Differential Diagnosis Schizophrenia, combative behavior <GARCÍA SILVEIRA - Last Filed: 01/19/20 22:55> - Lab Data Result diagrams: 01/19/20 17:40 01/20/20 22:30 - Medical Decision Making This gentleman has been cleared for discharge home with his mother by our psychiatric team. Psychiatric team concern for hypoglycemia. Patient has mild hyperglycemia without DKA symptoms. He is appropriate for discharge home. He is tolerating lunch at this moment. I have provided documentation and discharge order. <CARYN BRASWELL - Last Filed: 01/21/20 12:11> Critical care attestation.: If time is entered above; I have spent that time in minutes in the direct care of this critically ill patient, excluding procedure time. <GARCÍA SILVEIRA - Last Filed: 01/19/20 22:55> Critical care attestation.: If time is entered above; I have spent that time in minutes in the direct care of this critically ill patient, excluding procedure time. <CARYN BRASWELL - Last Filed: 01/21/20 12:11> ED Disposition <GARCÍA SILVEIRA - Last Filed: 01/19/20 22:55> Is pt being admited?: No Does the pt Need Aspirin: No <CARYN BRASWELL - Last Filed: 01/21/20 12:11> Clinical Impression: Schizophrenia, Combative behavior, Outbursts of explosive behavior Disposition: DC-01 TO HOME OR SELFCARE Condition: Stable Additional Instructions: Professional and Agency Contacts To help [facility](06/11) [place] Crisis Line: Suicide Prevention Line: Crisis Text Line: Text START to 720058 Emergency: 911 Outpatient COMMUNITY Behavioral Health Resources: DEKALB: [facility] [address] [place], [place] [address] [place]IN[place]: [facility] - [address] [place] [address] Sunday thru Sunday - 8am - 5pm TABITHA: [facility] Address: [address] [place] [address] Sunday thru Sunday- 7am-2pm [facility] Address: [address] [place] [address] Sunday thru Sunday: 8:30AM-5PM Prescriptions: Ziprasidone [Geodon] 60 mg PO BID #60 cap OXcarbazepine [Trileptal] 300 mg PO BID #60 tab OLANZapine [Zyprexa] 15 mg PO QPM #30 tab Referrals: PRIMARY CARE, [Primary Care Provider] - 3-5 Days
[2020-01-19] MEDS ORDERED: LORazepam 2 MG/ML VIAL IM PRN (16:59)
[2020-01-19] MEDS: diphenhydrAMINE 50 MG/ML VIAL IM PRN (17:29)
[2020-01-19] MEDS: HALOPERIDOL LACTATE 5 MG/1 ML INJ IM PRN (17:30)
[2020-01-19 17:58] LABS: Basophils % (Auto) 0.6 % (0.0-1.8); Eosinophils # (Auto) 0.1 K/mm3 (0.0-0.4); Eosinophils % (Auto) 2.7 % (0.0-4.3); Hematocrit 41.9 % (35.5-45.6); Hemoglobin 13.8 gm/dl (11.8-15.2); Lymphocytes % (Auto) 25.4 % (13.4-35.0); Mean Corpuscular HGB Conc 33 % (32-34); Mean Corpuscular Volume 84 fl (84-94); Monocytes # (Auto) 0.2 K/mm3 (0.0-0.8); Monocytes % (Auto) 5.7 % (0.0-7.3); Platelet Count 151 K/mm3 (140-440); Red Blood Count 4.98 M/mm3 (3.65-5.03)
[2020-01-19 18:16] LABS: Bilirubin,Urine NEG (Negative); Blood,Urine NEG (Negative); Color,Urine Straw (Yellow); Protein,Urine <15 mg/dL mg/dL (Negative); Urobilinogen,Urine < 2.0 mg/dL (<2.0)
[2020-01-19 18:17] LABS: Blood Urea Nitrogen 18 mg/dL (9-20); Calcium 9.9 mg/dL (8.4-10.2); Hemolysis Index 19
[2020-01-19 18:22] LABS: BUN/Creatinine Ratio 26
[2020-01-19 18:30] LABS: Amphetamine Screen,Urine PRESUMPTIVE NEGATIVE; Benzodiazepines Screen,Urine PRESUMPTIVE NEGATIVE; Cannabinoid Screen,Urine PRESUMPTIVE NEGATIVE; Cocaine Screen,Urine PRESUMPTIVE NEGATIVE; Methadone Screen,Urine PRESUMPTIVE NEGATIVE; Opiate Screen,Urine PRESUMPTIVE NEGATIVE
[2020-01-19] MEDS: ZIPRASIDONE 60 MG CAP PO SCH (22:43)
--- NOTE | 2020-01-20 09:17 | Consultation ---
History of Present Illness - Reason for Consult Consult date: 01/20/20 Reason for consult: MHE Requesting physician: GARCÍA SILVEIRA - History of Present Psychiatric Illness Per ED Provider: The patient is a 35-year-old male with a history of schizophrenia and mental retardation presenting with a chief complaint of combative behavior. Patient brought in after being combative with family. EMS was called upon EMS arrival the patient began screaming and yelling and banging his head. Upon arrival to the ED the patient has been calm. During the interview the patient becomes tearful and states that he just wants to go home. Patient denies suicidal ideation. Patient denies any complaints Per [facility]: [employer] Supervisor contacted pts mother, Candelaria Melgar, to obtain COL information related to pt. Mother reports that pt. was Acting up, throwing things away, crying, yelling, kicking chairs, and trying to fight (punching). Pt is triggered when something doesnt go his way or being redirected for wearing warm clothing and same clothes for several days. Pts Psychiatrists is Dr. Jiang in [place], [place] and is seen monthly. Pt is compliant with medications. Pt was seen on 01/19/2020 and received an additional medication. Pt. was prescribed amitriptyline 50mg. Denies previous inpatient psychiatric treatment, alcohol use, illicit drug use, and suicide attempt. Hx of hitting others. Reports hx of auditory hallucinations and most recent this afternoon. Per mother, voices tell pt. to break stuff or kick chairs. Pt has hx of Mild Mental Retardation, Schizophrenia, and Diabetes. Pt takes insulin and metformin to treat diabetes. PSYCH HPI Patient is a 35 year old male with extensive psyciatric history of mental retardation and schizophrenia who presented to the ED with Family with complaints of combative behavior and increased outburst. Patient in isolation, sleeping off and brely responds to verbal stimuli, history is limited due to patient's mental health PAST PSYCHIATRIC HISTORY Diagnoses: Mental retardation, schizophrenia Suicide attempts or Self-harm behavior: n/a Prior psychiatric hospitalizations: n/a Substance Abuse history: n/a Previous psychiatric medications tried: Yes Outpatient treatment: yes PAST MEDICAL HISTORY: n/a Family Psychiatric History: None reported or documented SOCIAL HISTORY Marital Status: single Living Arrangements: with family Employment Status: unemployed REVIEW OF SYSTEMS ROS cannot be reliably obtained from the patient due to pt mental condition MENTAL STATUS EXAMINATION Unable to complete Assessment and Plan - Psychiatric problem (1) Outbursts of explosive behavior Current Visit: Yes Status: Acute (2) Developmental disability Current Visit: Yes Status: Acute Treatment Plan Restart home medications History is limited due to patients current mental health. Recommends DD team to make recommendation MEDICATIONS: Risks, benefits and alternatives of medications discussed with the patient, questions answered and consent obtained from patient. PSYCHOTHERAPY: Supportive psychotherapy provided MEDICAL: Per primary team DELIRIUM PRECAUTIONS: Please re-orient patient frequently, keep lights on during the day, and minimize benzodiazepines and opiates as these medications could worsen patient's confusion. STUDENT DEAN: DISPOSITION: Refer to DD teams recommendation LEGAL STATUS: 1013 FOLLOW-UP: Will follow Thank you for the consult. Please contact with any questions and/or concerns. Medications and Allergies Allergies Allergy/AdvReac Type Severity Reaction Status Date / Time shrimp Allergy Mild Hives Verified 03/18/17 14:07 dog dander Allergy Hives Verified 03/18/17 14:07 grass pollen Allergy Unknown Verified 08/22/19 00:50 milk Allergy Unknown Verified 08/22/19 00:50 Milk Containing Products Allergy Unknown Verified 08/22/19 00:50 rice Allergy Itching Verified 03/18/17 14:07 EGGS Allergy Rash Uncoded 08/14/15 10:48 Home Medications Medication Instructions Recorded Confirmed Last Taken Type metFORMIN 500 mg PO DAILY 08/13/15 01/20/20 1 Day Ago History ~04/06/17 Ziprasidone [Geodon] 60 mg PO BID 08/22/19 01/20/20 01/20/20 History Amitriptyline [Elavil] 50 mg PO DAILY 01/20/20 01/20/20 Unknown History LORazepam [Lorazepam] 2 mg PO PRN PRN 01/20/20 01/20/20 Unknown History OLANZapine [Zyprexa] 20 mg PO QPM 01/20/20 01/20/20 Unknown History OXcarbazepine [Trileptal] 150 mg PO BID 01/20/20 01/20/20 Unknown History RX: Insulin Glargine [Lantus VIAL] 23 units SUB-Q QPM 01/20/20 01/20/20 Unknown History Active Meds: Active Medications Diphenhydramine HCl (Benadryl) 50 mg IM Q6H PRN PRN Reason: Agitation Last Admin: 01/19/20 17:29 Dose: 50 mg Documented by: Haloperidol Lactate (Haldol) 10 mg IM Q8H PRN PRN Reason: Agitation Last Admin: 01/19/20 17:30 Dose: 10 mg Documented by: Lorazepam (Ativan) 2 mg IM Q8H PRN PRN Reason: Agitation Last Admin: 01/19/20 17:30 Dose: 2 mg Documented by: Metformin HCl (Glucophage) 500 mg PO QAMDIAB JOHNATHAN Ziprasidone (Geodon) 60 mg PO BID JOHNATHAN Last Admin: 01/19/20 22:43 Dose: Not Given Documented by: Mental Status Exam - Vital signs Last Vital Signs Temp 97.4 F L 01/20/20 08:56 Pulse 74 01/20/20 08:56 Resp 18 01/20/20 08:56 BP 106/66 01/20/20 08:56 Pulse Ox 100 01/20/20 08:56 Results Result Diagrams: 01/19/20 17:40 01/19/20 17:40 Abnormal lab results 01/19/20 01/19/20 01/19/20 Range/Units 17:40 17:40 17:40 WBC 3.8 L (4.5-11.0) K/mm3 Lymph # (Auto) 1.0 L (1.2-5.4) K/mm3 Sodium 133 L (137-145) mmol/L Chloride 94.6 L (98-107) mmol/L Creatinine 0.7 L (0.8-1.3) mg/dL Glucose 361 H (75-100) mg/dL POC Glucose (70-105) Salicylates < 0.3 L (2.8-20.0) mg/dL Acetaminophen (10.0-30.0) ug/mL 01/19/20 01/20/20 Range/Units 17:40 05:14 WBC (4.5-11.0) K/mm3 Lymph # (Auto) (1.2-5.4) K/mm3 Sodium (137-145) mmol/L Chloride (98-107) mmol/L Creatinine (0.8-1.3) mg/dL Glucose (75-100) mg/dL POC Glucose 307 H (70-105) Salicylates (2.8-20.0) mg/dL Acetaminophen 5.0 L (10.0-30.0) ug/mL All other labs normal. Assessment and Plan - Psychiatric problem (1) Outbursts of explosive behavior Current Visit: Yes Status: Acute (2) Developmental disability Current Visit: Yes Status: Acute
[2020-01-20] MEDS: metFORMIN 500 MG TAB PO SCH (09:21)
[2020-01-20] MEDS: ZIPRASIDONE 60 MG CAP PO SCH ×2 (09:56→22:26)
[2020-01-20] MEDS ORDERED: NON-FORMULARY EACH (Metformin 500 MG) PO SCH (10:00)
[2020-01-20] MEDS: OXcarbazepine 150 MG TAB PO SCH ×2 (13:05→22:25)
[2020-01-20] MEDS ORDERED: INSULIN REGULAR, HUMAN 100 UNIT/ML 3ML VIAL ONE (13:17)
[2020-01-20] MEDS ORDERED: INSULIN REGULAR, HUMAN 100 UNIT/ML 3ML VIAL SUB-Q ONE (13:18)
[2020-01-20] MEDS ORDERED: INSULIN REGULAR, HUMAN 100 UNITS/1 ML ONE (13:20)
[2020-01-20 14:52] LABS: Blood Urea Nitrogen 17 mg/dL (9-20); Calcium 10.2 mg/dL (8.4-10.2); Hemolysis Index 21
[2020-01-20 14:53] LABS: BUN/Creatinine Ratio 24
[2020-01-20] MEDS ORDERED: ALPRAZolam 1 MG TAB ONE (16:19)
[2020-01-20] MEDS ORDERED: LORazepam 1 MG TAB PO ONE (16:21)
[2020-01-20] MEDS ORDERED: INSULIN GLARGINE 100 UNITS/ML SUB-Q SCH (16:30)
[2020-01-20] MEDS: diphenhydrAMINE 50 MG/ML VIAL IM PRN (18:11)
[2020-01-20] MEDS: HALOPERIDOL LACTATE 5 MG/1 ML INJ IM PRN (18:12)
[2020-01-20] MEDS ORDERED: SODIUM CHLORIDE 0.9% 1000 ML 1,000 ML IV ONE (22:23)
[2020-01-20 23:13] LABS: BUN/Creatinine Ratio 28; Blood Urea Nitrogen 22 mg/dL (9-20); Calcium 9.5 mg/dL (8.4-10.2); Hemolysis Index 31
[2020-01-21] MEDS ORDERED: SODIUM CHLORIDE 0.9% 1000 ML 1,000 ML IV ONE (00:13)
[2020-01-21] MEDS ORDERED: INSULIN REGULAR, HUMAN 100 UNIT/ML 3ML VIAL IV ONE (00:13)
[2020-01-21] MEDS ORDERED: INSULIN REGULAR, HUMAN 100 UNITS/1 ML ONE (00:19)
[2020-01-21] MEDS: metFORMIN 500 MG TAB PO SCH (07:56)
[2020-01-21 08:49] VITALS: BP 114/71
--- NOTE | 2020-01-21 10:10 | Progress Note ---
Subjective Date of service: 01/21/20 Subjective Comment: Per ED Nurse: Received pt in the room. Pt is alert and awake, calm and cooperative. Checked pt's vital signs and is stable, respiration even and non labored not in respiratory distress. Gave new green scrubs and gown to the pt and a blanket. Cleaned the pt's room and gave snack bag to the pt. Maintained safe and comfortable environment to the pt. Will continue to monitor the pt. Dr Elias stated to call mother, see if she was willing to accept pt back home since he has not been combative or disruptive. 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 Will call mother when DC paperwork is complete. Dr Elias aware. Psych Progress Patient seen in seclusion this AM, reports doing fine, says he would like to speak to his mother, wants to go home, and be outside of the room. Says he is not angry and willing to take all medicines. MENTAL STATUS EXAMINATION General Appearance and Behavior: Age appropriate, fair hygiene, wearing appropriate clothes, lying in bed, poor eye contact, cooperative polite/ with questioning. Cooperation: Participating/engaged Psychomotor Behavior: unremarkable and within normal limits Mood: Good Affect and affective range: congruent with mood Thought Process: Fluent/Logical Thought Content: Poverty Speech: Normal volume, Regular rate and rhythm Intellectual Functioning: Fair Suicidal Ideation: Denies SI Homicidal Ideation: Denies HI Impulse Control: Impaired Insight and Judgment: Impaired Memory: Prospective memory impaired Attention: Divided attention impaired Orientation: Alert, oriented Assessment and Plan - Psychiatric problem (1) Outbursts of explosive behavior Current Visit: Yes Status: Acute (2) Developmental disability Current Visit: Yes Status: Acute Treatment Plan Restart home medications History is limited due to patients current mental health. Recommends DD team to make recommendation MEDICATIONS: Risks, benefits and alternatives of medications discussed with the patient, questions answered and consent obtained from patient. PSYCHOTHERAPY: Supportive psychotherapy provided MEDICAL: Per primary team DELIRIUM PRECAUTIONS: Please re-orient patient frequently, keep lights on during the day, and minimize benzodiazepines and opiates as these medications could worsen patient's confusion. TECHNICAL SUPPORT REPRESENTATIVE: DISPOSITION: Outpt, mother agrees to have patient back home LEGAL STATUS: 1013 rescinded FOLLOW-UP: Will sign off Thank you for the consult. Please contact with any questions and/or concerns. Assessment and Plan - Patient Problems (1) Outbursts of explosive behavior Current Visit: Yes Status: Acute (2) Developmental disability Current Visit: Yes Status: Acute Medications and Allergies Allergies Allergy/AdvReac Type Severity Reaction Status Date / Time shrimp Allergy Mild Hives Verified 01/21/20 09:57 dog dander Allergy Hives Verified 01/21/20 09:57 grass pollen Allergy Unknown Verified 01/21/20 09:57 milk Allergy Unknown Verified 01/21/20 09:57 Milk Containing Products Allergy Unknown Verified 01/21/20 09:57 rice Allergy Itching Verified 01/21/20 09:57 EGGS Allergy Rash Uncoded 01/21/20 09:57 Home Medications Medication Instructions Recorded Confirmed Last Taken Type metFORMIN 500 mg PO BID 08/13/15 01/20/20 1 Day Ago History ~04/06/17 Ziprasidone [Geodon] 60 mg PO BID 08/22/19 01/20/20 01/20/20 History Amitriptyline [Elavil] 50 mg PO DAILY 01/20/20 01/20/20 Unknown History Insulin Glargine [Lantus VIAL] 23 units SUB-Q QPM 01/20/20 01/20/20 Unknown History LORazepam [Lorazepam] 2 mg PO PRN PRN 01/20/20 01/20/20 Unknown History OLANZapine [Zyprexa] 20 mg PO QPM 01/20/20 01/20/20 Unknown History OXcarbazepine [Trileptal] 150 mg PO BID 01/20/20 01/20/20 Unknown History Active Meds: Active Medications Diphenhydramine HCl (Benadryl) 50 mg IM Q6H PRN PRN Reason: Agitation Last Admin: 01/20/20 18:11 Dose: 50 mg Documented by: Haloperidol Lactate (Haldol) 10 mg IM Q8H PRN PRN Reason: Agitation Last Admin: 01/20/20 18:12 Dose: 10 mg Documented by: Insulin Glargine (Lantus) 23 units SUB-Q 1630 JOHNATHAN Last Admin: 01/20/20 16:19 Dose: 23 units Documented by: Lorazepam (Ativan) 2 mg IM Q8H PRN PRN Reason: Agitation Last Admin: 01/19/20 17:30 Dose: 2 mg Documented by: Metformin HCl (Glucophage) 500 mg PO QAMDIAB [facility] Last Admin: 01/21/20 07:56 Dose: 500 mg Documented by: Olanzapine (Zyprexa) 10 mg PO QHS [facility] Last Admin: 01/20/20 22:25 Dose: 10 mg Documented by: Oxcarbazepine (Trileptal) 300 mg PO BID [facility] Last Admin: 01/20/20 22:25 Dose: 300 mg Documented by: Ziprasidone (Geodon) 60 mg PO BID [facility] Last Admin: 01/20/20 22:26 Dose: 60 mg Documented by: Results - Results Labs/Vitals: Laboratory Last Values WBC 3.8 K/mm3 (4.5-11.0) L 01/19/20 17:40 RBC 4.98 M/mm3 (3.65-5.03) 01/19/20 17:40 Hgb 13.8 gm/dl (11.8-15.2) 01/19/20 17:40 Hct 41.9 % (35.5-45.6) 01/19/20 17:40 MCV 84 fl (84-94) 01/19/20 17:40 MCH 28 pg (28-32) 01/19/20 17:40 MCHC 33 % (32-34) 01/19/20 17:40 RDW 14.0 % (13.2-15.2) 01/19/20 17:40 Plt Count 151 K/mm3 (140-440) 01/19/20 17:40 Lymph % (Auto) 25.4 % (13.4-35.0) 01/19/20 17:40 [place] % (Auto) 5.7 % (0.0-7.3) 01/19/20 17:40 Eos % (Auto) 2.7 % (0.0-4.3) 01/19/20 17:40 Baso % (Auto) 0.6 % (0.0-1.8) 01/19/20 17:40 Lymph # (Auto) 1.0 K/mm3 (1.2-5.4) L 01/19/20 17:40 [place] # (Auto) 0.2 K/mm3 (0.0-0.8) 01/19/20 17:40 Eos # (Auto) 0.1 K/mm3 (0.0-0.4) 01/19/20 17:40 Baso # (Auto) 0.0 K/mm3 (0.0-0.1) 01/19/20 17:40 Seg Neutrophils % 65.6 % (40.0-70.0) 01/19/20 17:40 Seg Neutrophils # 2.5 K/mm3 (1.8-7.7) 01/19/20 17:40 VBG pH 7.337 (7.320-7.420) 01/20/20 22:30 Sodium 134 mmol/L (137-145) L 01/20/20 22:30 Potassium 5.2 mmol/L (3.6-5.0) H 01/20/20 22:30 Chloride 92.6 mmol/L (98-107) L 01/20/20 22:30 Carbon Dioxide 27 mmol/L (22-30) 01/20/20 22:30 Anion Gap 20 mmol/L 01/20/20 22:30 BUN 22 mg/dL (9-20) H 01/20/20 22:30 Creatinine 0.8 mg/dL (0.8-1.3) 01/20/20 22:30 Estimated GFR > 60 ml/min 01/20/20 22:30 BUN/Creatinine Ratio 28 % 01/20/20 22:30 Glucose 454 mg/dL (75-100) H 01/20/20 22:30 POC Glucose 291 (70-105) H 01/21/20 05:34 Calcium 9.5 mg/dL (8.4-10.2) 01/20/20 22:30 Urine Color Straw (Yellow) 01/19/20 17:46 Urine Turbidity Clear (Clear) 01/19/20 17:46 Urine pH 7.0 (5.0-7.0) 01/19/20 17:46 Ur Specific [place] 1.028 (1.003-1.030) 01/19/20 17:46 Urine Protein <15 mg/dl mg/dL (Negative) 01/19/20 17:46 Urine Glucose (UA) >=500 mg/dL (Negative) 01/19/20 17:46 Urine Ketones Neg mg/dL (Negative) 01/19/20 17:46 Urine Blood Neg (Negative) 01/19/20 17:46 Urine Nitrite Neg (Negative) 01/19/20 17:46 Urine Bilirubin Neg (Negative) 01/19/20 17:46 Urine Urobilinogen < 2.0 mg/dL (<2.0) 01/19/20 17:46 Ur Leukocyte Esterase Neg (Negative) 01/19/20 17:46 Urine WBC (Auto) 1.0 /HPF (0.0-6.0) 01/19/20 17:46 Urine RBC (Auto) 1.0 /HPF (0.0-6.0) 01/19/20 17:46 Salicylates < 0.3 mg/dL (2.8-20.0) L 01/19/20 17:40 Urine Opiates Screen Presumptive negative 01/19/20 17:46 Urine Methadone Screen Presumptive negative 01/19/20 17:46 Acetaminophen 5.0 ug/mL (10.0-30.0) L 01/19/20 17:40 Ur Barbiturates Screen Presumptive negative 01/19/20 17:46 Ur Phencyclidine Scrn Presumptive negative 01/19/20 17:46 Ur Amphetamines Screen Presumptive negative 01/19/20 17:46 U Benzodiazepines Scrn Presumptive negative 01/19/20 17:46 Urine Cocaine Screen Presumptive negative 01/19/20 17:46 U Marijuana (THC) Screen Presumptive negative 01/19/20 17:46 Drugs of Abuse Note Disclamer 01/19/20 17:46 Plasma/Serum Alcohol < 0.01 % (0-0.07) 01/19/20 17:40 Last Vital Signs Temp 98.6 F 01/21/20 08:48 Pulse 85 01/21/20 08:48 Resp 20 01/21/20 08:48 BP 114/71 01/21/20 08:48 Pulse Ox 100 01/21/20 08:48
--- NOTE | 2020-01-21 10:15 | Progress Note ---
Subjective - Reason for Consult Consult date: 01/21/20 Reason for consult: MHE Requesting physician: GARCÍA SILVEIRA - Chief Complaint Chief complaint: Per ED Nurse: Received pt in the room. Pt is alert and awake, calm and cooperative. Checked pt's vital signs and is stable, respiration even and non labored not in respiratory distress. Gave new green scrubs and gown to the pt and a blanket. Cleaned the pt's room and gave snack bag to the pt. Maintained safe and comfortable environment to the pt. Will continue to monitor the pt. Dr Elias stated to call mother, see if she was willing to accept pt back home since he has not been combative or disruptive. 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 Will call mother when DC paperwork is complete. Dr Elias aware. Psych Progress Patient seen in seclusion this AM, reports doing fine, says he would like to speak to his mother, wants to go home, and be outside of the room. Says he is not angry and willing to take all medicines. MENTAL STATUS EXAMINATION General Appearance and Behavior: Age appropriate, fair hygiene, wearing appropriate clothes, lying in bed, poor eye contact, cooperative polite/ with questioning. Cooperation: Participating/engaged Psychomotor Behavior: unremarkable and within normal limits Mood: Good Affect and affective range: congruent with mood Thought Process: Fluent/Logical Thought Content: Poverty Speech: Normal volume, Regular rate and rhythm Intellectual Functioning: Fair Suicidal Ideation: Denies SI Homicidal Ideation: Denies HI Impulse Control: Impaired Insight and Judgment: Impaired Memory: Prospective memory impaired Attention: Divided attention impaired Orientation: Alert, oriented Assessment and Plan - Psychiatric problem (1) Outbursts of explosive behavior Current Visit: Yes Status: Acute (2) Developmental disability Current Visit: Yes Status: Acute Treatment Plan Restart home medications History is limited due to patients current mental health. Recommends DD team to make recommendation MEDICATIONS: Risks, benefits and alternatives of medications discussed with the patient, questions answered and consent obtained from patient. PSYCHOTHERAPY: Supportive psychotherapy provided MEDICAL: Per primary team DELIRIUM PRECAUTIONS: Please re-orient patient frequently, keep lights on during the day, and minimize benzodiazepines and opiates as these medications could worsen patient's confusion. CRIMINAL PROFILER: DISPOSITION: Outpt, mother agrees to have patient back home. Pt to be discharged only when medically cleared due to lab abnormalities LEGAL STATUS: 1013 rescinded FOLLOW-UP: Will sign off Thank you for the consult. Please contact with any questions and/or concerns. Mental Status Exam - Vital signs Last Vital Signs Temp 98.6 F 01/21/20 08:48 Pulse 85 01/21/20 08:48 Resp 20 01/21/20 08:48 BP 114/71 01/21/20 08:48 Pulse Ox 100 01/21/20 08:48 Assessment and Plan - Patient Problems (1) Outbursts of explosive behavior Current Visit: Yes Status: Acute (2) Developmental disability Current Visit: Yes Status: Acute
[2020-01-21] MEDS: ZIPRASIDONE 60 MG CAP PO SCH (10:20)
[2020-01-21] MEDS: OXcarbazepine 150 MG TAB PO SCH (10:21)
== END 2020-01-21 14:11 | disposition home or self-care (01) ==
LOC: ED 16:28
DX: F20.9 Schizophrenia, unspecified (principal); E11.9 Type 2 diabetes mellitus without complications; Z91.018 Allergy to other foods; Z91.048 Other nonmedicinal substance allergy status; Z91.013 Allergy to seafood; Z79.899 Other long term (current) drug therapy
CPT/HCPCS: 36415; 80048; 80307; 81001; 82805; 82962; 85025; 96361; 96372; 96374; 99285; J1200; J1630; J2060; J7030; 80320; G0480; J1815

== ENCOUNTER 2020-01-21 23:26 | Emergency (ER) | payer MEDICAID ==
[2020-01-22] MEDS ORDERED: LORazepam 2 MG/ML VIAL ONE (00:31)
[2020-01-22] MEDS ORDERED: ZIPRASIDONE MESYLATE 20 MG VIAL IM ONE (00:31)
[2020-01-22 00:39] LABS: Basophils % (Auto) 0.6 % (0.0-1.8); Eosinophils # (Auto) 0.1 K/mm3 (0.0-0.4); Eosinophils % (Auto) 1.5 % (0.0-4.3); Hematocrit 40.6 % (35.5-45.6); Hemoglobin 13.3 gm/dl (11.8-15.2); Lymphocytes # (Auto) 1.3 K/mm3 (1.2-5.4); Lymphocytes % (Auto) 34.1 % (13.4-35.0); Mean Corpuscular HGB Conc 33 % (32-34); Mean Corpuscular Volume 83 fl (84-94); Monocytes # (Auto) 0.3 K/mm3 (0.0-0.8); Monocytes % (Auto) 7.6 % (0.0-7.3); Platelet Count 192 K/mm3 (140-440); Red Cell Distribution Width 13.7 % (13.2-15.2)
[2020-01-22] MEDS ORDERED: LORazepam 2 MG/ML VIAL IM ONE (00:40)
[2020-01-22] MEDS ORDERED: WATER FOR INJ Sterile (PF) 10 ML ONE (00:46)
[2020-01-22 00:57] LABS: Blood Urea Nitrogen 16 mg/dL (9-20); Calcium 9.9 mg/dL (8.4-10.2); Hemolysis Index 3
--- NOTE | 2020-01-22 01:00 | Emergency Department Report ---
ED General Adult HPI - General Chief complaint: Psych Stated complaint: MH EVAL Time Seen by Provider: 01/22/20 00:03 Source: patient, family Mode of arrival: Wheelchair Limitations: Other - Related Data Home Medications Medication Instructions Recorded Confirmed Last Taken metFORMIN 500 mg PO BID 08/13/15 01/20/20 1 Day Ago ~04/06/17 Amitriptyline [Elavil] 50 mg PO DAILY 01/20/20 01/20/20 Unknown Insulin Glargine [Lantus VIAL] 23 units SUB-Q QPM 01/20/20 01/20/20 Unknown LORazepam [Lorazepam] 2 mg PO PRN PRN 01/20/20 01/20/20 Unknown Previous Rx's Medication Instructions Recorded Last Taken Type OLANZapine [Zyprexa] 15 mg PO QPM #30 tab 01/21/20 Unknown Rx OXcarbazepine [Trileptal] 300 mg PO BID #60 tab 01/21/20 Unknown Rx Ziprasidone [Geodon] 60 mg PO BID #60 cap 01/21/20 Unknown Rx Allergies Allergy/AdvReac Type Severity Reaction Status Date / Time shrimp Allergy Mild Hives Verified 01/21/20 09:57 dog dander Allergy Hives Verified 01/21/20 09:57 grass pollen Allergy Unknown Verified 01/21/20 09:57 milk Allergy Unknown Verified 01/21/20 09:57 Milk Containing Products Allergy Unknown Verified 01/21/20 09:57 rice Allergy Itching Verified 01/21/20 09:57 EGGS Allergy Rash Uncoded 01/21/20 09:57 ED Review of Systems ROS: Stated complaint: EVAL Other details as noted in HPI Comment: All other systems reviewed and negative Constitutional: denies: chills, fever Eyes: denies: eye pain, eye discharge, vision change ENT: denies: ear pain, throat pain Respiratory: denies: cough, shortness of breath, wheezing Cardiovascular: denies: chest pain, palpitations Endocrine: no symptoms reported Gastrointestinal: denies: abdominal pain, nausea, diarrhea Genitourinary: denies: urgency, dysuria Musculoskeletal: denies: back pain, joint swelling, arthralgia Skin: denies: rash, lesions Neurological: denies: headache, weakness, paresthesias Psychiatric: denies: anxiety, depression Hematological/Lymphatic: denies: easy bleeding, easy bruising ED Past Medical Hx - Past Medical History Hx Diabetes: Yes (Diabetes) Hx Psychiatric Treatment: Yes (schizophrenia, mild mr) - Social History Smoking Status: Unknown if ever smoked - Medications Home Medications: Home Medications Medication Instructions Recorded Confirmed Last Taken Type metFORMIN 500 mg PO BID 08/13/15 01/20/20 1 Day Ago History ~04/06/17 Amitriptyline [Elavil] 50 mg PO DAILY 01/20/20 01/20/20 Unknown History Insulin Glargine [Lantus VIAL] 23 units SUB-Q QPM 01/20/20 01/20/20 Unknown History LORazepam [Lorazepam] 2 mg PO PRN PRN 01/20/20 01/20/20 Unknown History OLANZapine [Zyprexa] 15 mg PO QPM #30 tab 01/21/20 Unknown Rx OXcarbazepine [Trileptal] 300 mg PO BID #60 tab 01/21/20 Unknown Rx Ziprasidone [Geodon] 60 mg PO BID #60 cap 01/21/20 Unknown Rx ED Physical Exam - General Limitations: Other General appearance: alert, in no apparent distress - Head Head exam: Present: atraumatic, normocephalic - Eye Eye exam: Present: normal appearance, PERRL, EOMI - ENT ENT exam: Present: mucous membranes moist - Neck Neck exam: Present: normal inspection - Respiratory Respiratory exam: Present: normal lung sounds bilaterally. Absent: respiratory distress - Cardiovascular Cardiovascular Exam: Present: regular rate, normal rhythm. Absent: systolic murmur, diastolic murmur, rubs, gallop - GI/Abdominal GI/Abdominal exam: Present: soft, normal bowel sounds. Absent: distended, tenderness - Rectal Rectal exam: Present: deferred - Extremities Exam Extremities exam: Present: normal inspection - Back Exam Back exam: Present: normal inspection - Neurological Exam Neurological exam: Present: alert, oriented X3, CN II-XII intact. Absent: motor sensory deficit - Psychiatric Psychiatric exam: Present: normal affect, normal mood - Skin Skin exam: Present: warm, dry, intact, normal color. Absent: rash ED Medical Decision Making - Lab Data Result diagrams: 01/21/20 23:49 Critical care attestation.: If time is entered above; I have spent that time in minutes in the direct care o f this critically ill patient, excluding procedure time. ED Disposition Condition: Stable Referrals: PRIMARY CARE,MD [Primary Care Provider] - 3-5 Days
[2020-01-22 01:20] LABS: BUN/Creatinine Ratio 23
--- NOTE | 2020-01-22 01:39 | Emergency Department Report ---
ED General Adult HPI - General Chief complaint: Psych Stated complaint: MH EVAL Time Seen by Provider: 01/22/20 00:03 Source: patient, family Mode of arrival: Wheelchair Limitations: Other - History of Present Illness Initial comments: The patient presents to the emergency department with a chief complaint of auditory hallucinations. Per the patient's brother he states that the patient has been hearing voices and responding to them. While patient was in triage he began to scream and was attempting to tow picker which he had to throw it. Patient denied without history. -: This evening Severity scale (0 -10): 0 Consistency: constant Improves with: none Worsens with: none Associated Symptoms: denies other symptoms Treatments Prior to Arrival: none - Related Data Home Medications Medication Instructions Recorded Confirmed Last Taken metFORMIN 500 mg PO BID 08/13/15 01/20/20 1 Day Ago ~04/06/17 Amitriptyline [Elavil] 50 mg PO DAILY 01/20/20 01/20/20 Unknown Insulin Glargine [Lantus VIAL] 23 units SUB-Q QPM 01/20/20 01/20/20 Unknown LORazepam [Lorazepam] 2 mg PO PRN PRN 01/20/20 01/20/20 Unknown Previous Rx's Medication Instructions Recorded Last Taken Type OLANZapine [Zyprexa] 15 mg PO QPM #30 tab 01/21/20 Unknown Rx OXcarbazepine [Trileptal] 300 mg PO BID #60 tab 01/21/20 Unknown Rx Ziprasidone [Geodon] 60 mg PO BID #60 cap 01/21/20 Unknown Rx Allergies Allergy/AdvReac Type Severity Reaction Status Date / Time shrimp Allergy Mild Hives Verified 01/21/20 09:57 dog dander Allergy Hives Verified 01/21/20 09:57 grass pollen Allergy Unknown Verified 01/21/20 09:57 milk Allergy Unknown Verified 01/21/20 09:57 Milk Containing Products Allergy Unknown Verified 01/21/20 09:57 rice Allergy Itching Verified 01/21/20 09:57 EGGS Allergy Rash Uncoded 01/21/20 09:57 ED Review of Systems ROS: Stated complaint: MH EVAL Other details as noted in HPI Constitutional: denies: chills, fever Eyes: denies: eye pain, eye discharge, vision change ENT: denies: ear pain, throat pain Respiratory: denies: cough, shortness of breath, wheezing Cardiovascular: denies: chest pain, palpitations Endocrine: no symptoms reported Gastrointestinal: denies: abdominal pain, nausea, diarrhea Genitourinary: denies: urgency, dysuria Musculoskeletal: denies: back pain, joint swelling, arthralgia Skin: denies: rash, lesions Neurological: denies: headache, weakness, paresthesias Psychiatric: denies: anxiety, depression Hematological/Lymphatic: denies: easy bleeding, easy bruising ED Past Medical Hx - Past Medical History Hx Diabetes: Yes (Diabetes) Hx Psychiatric Treatment: Yes (schizophrenia, mild mr) - Social History Smoking Status: Unknown if ever smoked - Medications Home Medications: Home Medications Medication Instructions Recorded Confirmed Last Taken Type metFORMIN 500 mg PO BID 08/13/15 01/20/20 1 Day Ago History ~04/06/17 Amitriptyline [Elavil] 50 mg PO DAILY 01/20/20 01/20/20 Unknown History Insulin Glargine [Lantus VIAL] 23 units SUB-Q QPM 01/20/20 01/20/20 Unknown History LORazepam [Lorazepam] 2 mg PO PRN PRN 01/20/20 01/20/20 Unknown History OLANZapine [Zyprexa] 15 mg PO QPM #30 tab 01/21/20 Unknown Rx OXcarbazepine [Trileptal] 300 mg PO BID #60 tab 01/21/20 Unknown Rx Ziprasidone [Geodon] 60 mg PO BID #60 cap 01/21/20 Unknown Rx ED Physical Exam - General Limitations: Other General appearance: alert, in no apparent distress - Head Head exam: Present: atraumatic, normocephalic - Eye Eye exam: Present: normal appearance, PERRL, EOMI - ENT ENT exam: Present: mucous membranes moist - Neck Neck exam: Present: normal inspection - Respiratory Respiratory exam: Present: normal lung sounds bilaterally. Absent: respiratory distress - Cardiovascular Cardiovascular Exam: Present: regular rate, normal rhythm. Absent: systolic murmur, diastolic murmur, rubs, gallop - GI/Abdominal GI/Abdominal exam: Present: soft, normal bowel sounds. Absent: distended, tenderness - Rectal Rectal exam: Present: deferred - Extremities Exam Extremities exam: Present: normal inspection - Back Exam Back exam: Present: normal inspection - Neurological Exam Neurological exam: Present: alert, oriented X3, CN II-XII intact. Absent: motor sensory deficit - Psychiatric Psychiatric exam: Present: normal affect, normal mood - Skin Skin exam: Present: warm, dry, intact, normal color. Absent: rash ED Course Vital Signs 01/21/20 23:52 Temperature 98.9 F Pulse Rate 110 H Respiratory 18 Rate Blood Pressure 134/90 O2 Sat by Pulse 99 Oximetry ED Medical Decision Making - Lab Data Result diagrams: 01/21/20 23:49 01/21/20 23:49 Lab Results 01/21/20 01/21/20 01/21/20 Range/Units 23:49 23:49 23:49 WBC (4.5-11.0) K/mm3 RBC (3.65-5.03) M/mm3 Hgb (11.8-15.2) gm/dl Hct (35.5-45.6) % MCV (84-94) fl MCH (28-32) pg MCHC (32-34) % RDW (13.2-15.2) % Plt Count (140-440) K/mm3 Lymph % (Auto) (13.4-35.0) % [place] % (Auto) (0.0-7.3) % Eos % (Auto) (0.0-4.3) % Baso % (Auto) (0.0-1.8) % Lymph # (Auto) (1.2-5.4) K/mm3 [place] # (Auto) (0.0-0.8) K/mm3 Eos # (Auto) (0.0-0.4) K/mm3 Baso # (Auto) (0.0-0.1) K/mm3 Seg Neutrophils % (40.0-70.0) % Seg Neutrophils # (1.8-7.7) K/mm3 Sodium 137 (137-145) mmol/L Potassium 3.8 D (3.6-5.0) mmol/L Chloride 96.1 L (98-107) mmol/L Carbon Dioxide 21 L (22-30) mmol/L Anion Gap 24 mmol/L BUN 16 (9-20) mg/dL Creatinine 0.7 L (0.8-1.3) mg/dL Estimated GFR > 60 ml/min BUN/Creatinine Ratio 23 % Glucose 199 H (75-100) mg/dL Calcium 9.9 (8.4-10.2) mg/dL Salicylates < 0.3 L (2.8-20.0) mg/dL Acetaminophen 5.0 L (10.0-30.0) ug/mL Plasma/Serum Alcohol (0-0.07) % 01/21/20 01/21/20 Range/Units 23:49 23:49 WBC 3.8 L (4.5-11.0) K/mm3 RBC 4.90 (3.65-5.03) M/mm3 Hgb 13.3 (11.8-15.2) gm/dl Hct 40.6 (35.5-45.6) % MCV 83 L (84-94) fl MCH 27 L (28-32) pg MCHC 33 (32-34) % RDW 13.7 (13.2-15.2) % Plt Count 192 (140-440) K/mm3 Lymph % (Auto) 34.1 (13.4-35.0) % [place] % (Auto) 7.6 H (0.0-7.3) % Eos % (Auto) 1.5 (0.0-4.3) % Baso % (Auto) 0.6 (0.0-1.8) % Lymph # (Auto) 1.3 (1.2-5.4) K/mm3 [place] # (Auto) 0.3 (0.0-0.8) K/mm3 Eos # (Auto) 0.1 (0.0-0.4) K/mm3 Baso # (Auto) 0.0 (0.0-0.1) K/mm3 Seg Neutrophils % 56.2 (40.0-70.0) % Seg Neutrophils # 2.1 (1.8-7.7) K/mm3 Sodium (137-145) mmol/L Potassium (3.6-5.0) mmol/L Chloride (98-107) mmol/L Carbon Dioxide (22-30) mmol/L Anion Gap mmol/L BUN (9-20) mg/dL Creatinine (0.8-1.3) mg/dL Estimated GFR ml/min BUN/Creatinine Ratio % Glucose (75-100) mg/dL Calcium (8.4-10.2) mg/dL Salicylates (2.8-20.0) mg/dL Acetaminophen (10.0-30.0) ug/mL Plasma/Serum Alcohol < 0.01 (0-0.07) % - Medical Decision Making Patient became agitated in the ED so was given [place] Critical care attestation.: If time is entered above; I have spent that time in minutes in the direct care of this critically ill patient, excluding procedure time. ED Disposition Clinical Impression: Agitation Disposition: [id number]/TX-[id number] PSY HOSP/PSY UNIT Is pt being admited?: No Does the pt Need Aspirin: No Condition: Stable Referrals: PRIMARY CARE, [Primary Care Provider] - 3-5 Days
[2020-01-22] MEDS ORDERED: HALOPERIDOL LACTATE 5 MG/1 ML INJ IM ONE (06:42)
[2020-01-22 08:06] VITALS: BP 139/95
[2020-01-22 08:58] LABS: Bilirubin,Urine NEG (Negative); Blood,Urine NEG (Negative); Color,Urine Yellow (Yellow); Mucus,Urine FEW /HPF; Protein,Urine <15 mg/dL mg/dL (Negative); Urobilinogen,Urine < 2.0 mg/dL (<2.0)
[2020-01-22 09:04] LABS: Amphetamine Screen,Urine PRESUMPTIVE NEGATIVE; Benzodiazepines Screen,Urine PRESUMPTIVE NEGATIVE; Cannabinoid Screen,Urine PRESUMPTIVE NEGATIVE; Cocaine Screen,Urine PRESUMPTIVE NEGATIVE; Methadone Screen,Urine PRESUMPTIVE NEGATIVE; Opiate Screen,Urine PRESUMPTIVE NEGATIVE
--- NOTE | 2020-01-22 12:30 | Consultation ---
History of Present Illness - Reason for Consult Consult date: 01/22/20 Reason for consult: MHE Requesting physician: DANE STEPHENS - History of Present Psychiatric Illness Psych Progress Patient seen and evaluated by me last 2 days, was discharged and came back to ED. I spoke with mom who is patients legal guardian, she says patient behavior was fine when he got home but sometimes he remembers somethings and says some things that has happened in the past and she feels he needs therapy. Mother reports she does not want patient to be placed in mental health facility because he gets worse whenever he leaves there, she only wants therapy where someone is able to talk to him, I informed mom, we do not provide therapy services in ED, it would be an outpt service and what we can do is place him to psych facility w ho can determine care prognosis but mother declines and request outpt psych therapy counselling information. MENTAL STATUS EXAMINATION General Appearance and Behavior: Age appropriate, fair hygiene, wearing appropriate clothes, lying in bed, poor eye contact, cooperative polite/ with questioning. Cooperation: Participating/engaged Psychomotor Behavior: unremarkable and within normal limits Mood: Good Affect and affective range: congruent with mood Thought Process: Fluent/Logical Thought Content: Poverty Speech: Normal volume, Regular rate and rhythm Intellectual Functioning: Fair Suicidal Ideation: Denies SI Homicidal Ideation: Denies HI Impulse Control: Impaired Insight and Judgment: Impaired Memory: Prospective memory impaired Attention: Divided attention impaired Orientation: Alert, oriented Assessment and Plan - Psychiatric problem (1) Outbursts of explosive behavior Current Visit: Yes Status: Acute (2) Developmental disability Current Visit: Yes Status: Acute Treatment Plan Restart home medications History is limited due to patients current mental health. Recommends DD team to make recommendation MEDICATIONS: Risks, benefits and alternatives of medications discussed with the patient, questions answered and consent obtained from patient. PSYCHOTHERAPY: Supportive psychotherapy provided MEDICAL: Per primary team DELIRIUM PRECAUTIONS: Please re-orient patient frequently, keep lights on during the day, and minimize benzodiazepines and opiates as these medications could worsen patient's confusion. [employer]: DISPOSITION: Outpt, mother agrees to have patient back home, does not want patient placed to mental health facility. LEGAL STATUS: Voluntary FOLLOW-UP: Will sign off Thank you for the consult. Please contact with any questions and/or concerns. Medications and Allergies Allergies Allergy/AdvReac Type Severity Reaction Status Date / Time shrimp Allergy Mild Hives Verified 10/07/20 09:57 dog dander Allergy Hives Verified 01/21/20 09:57 grass pollen Allergy Unknown Verified 01/21/20 09:57 milk Allergy Unknown Verified 01/21/20 09:57 Milk Containing Products Allergy Unknown Verified 01/21/20 09:57 rice Allergy Itching Verified 01/21/20 09:57 EGGS Allergy Rash Uncoded 01/21/20 09:57 Home Medications Medication Instructions Recorded Confirmed Last Taken Type metFORMIN 500 mg PO BID 08/13/15 01/20/20 1 Day Ago History ~04/06/17 Amitriptyline [Elavil] 50 mg PO DAILY 01/20/20 01/20/20 Unknown History Insulin Glargine [Lantus VIAL] 23 units SUB-Q QPM 01/20/20 01/20/20 Unknown History LORazepam [Lorazepam] 2 mg PO PRN PRN 01/20/20 01/20/20 Unknown History OLANZapine [Zyprexa] 15 mg PO QPM #30 tab 01/21/20 Unknown Rx OXcarbazepine [Trileptal] 300 mg PO BID #60 tab 01/21/20 Unknown Rx Ziprasidone [Geodon] 60 mg PO BID #60 cap 01/21/20 Unknown Rx Mental Status Exam - Vital signs Last Vital Signs Temp 98.3 F 01/22/20 08:05 Pulse 80 01/22/20 08:05 Resp 20 01/22/20 08:05 BP 139/95 01/22/20 08:05 Pulse Ox 100 01/22/20 08:05 Results Result Diagrams: 01/21/20 23:49 01/21/20 23:49 Abnormal lab results 01/21/20 01/21/20 01/21/20 Range/Units 23:49 23:49 23:49 WBC (4.5-11.0) K/mm3 MCV (84-94) fl MCH (28-32) pg [place] % (Auto) (0.0-7.3) % Chloride 96.1 L (98-107) mmol/L Carbon Dioxide 21 L (22-30) mmol/L Creatinine 0.7 L (0.8-1.3) mg/dL Glucose 199 H (75-100) mg/dL Urine WBC (Auto) (0.0-6.0) /HPF Salicylates < 0.3 L (2.8-20.0) mg/dL Acetaminophen 5.0 L (10.0-30.0) ug/mL 01/21/20 01/22/20 Range/Units 23:49 Unknown WBC 3.8 L (4.5-11.0) K/mm3 MCV 83 L (84-94) fl MCH 27 L (28-32) pg [place] % (Auto) 7.6 H (0.0-7.3) % Chloride (98-107) mmol/L Carbon Dioxide (22-30) mmol/L Creatinine (0.8-1.3) mg/dL Glucose (75-100) mg/dL Urine WBC (Auto) 7.0 H (0.0-6.0) /HPF Salicylates (2.8-20.0) mg/dL Acetaminophen (10.0-30.0) ug/mL All other labs normal.
== END 2020-01-22 16:20 | disposition home or self-care (01) ==
LOC: ED 23:26
DX: R45.1 Restlessness and agitation (principal); E11.9 Type 2 diabetes mellitus without complications; F20.9 Schizophrenia, unspecified; Z79.4 Long term (current) use of insulin; Z79.899 Other long term (current) drug therapy; Z91.013 Allergy to seafood; Z91.011 Allergy to milk products; Z91.012 Allergy to eggs; Z88.8 Allergy status to other drugs, medicaments and biological substances
CPT/HCPCS: 36415; 80048; 80307; 81001; 85025; 96372; 99284; J1630; J2060; J3486; 80320; G0480

== ENCOUNTER 2020-03-09 13:43 | Emergency (ER) | payer MEDICAID ==
[2020-03-09] MEDS ORDERED: ZIPRASIDONE MESYLATE 20 MG VIAL IM ONE ×2 (13:47→13:51)
--- NOTE | 2020-03-09 13:57 | Emergency Department Report ---
ED Psych HPI - General Stated Complaint: MH EVAL Time Seen by Provider: 03/09/20 13:50 - History of Present Illness Initial Comments: Patient is 35 years old male with history of schizoaffective disorder and mild MR. Patient brought to the emergency room via EMS after patient tried to jump off his parents car. As soon as he arrived in the emergency room patient start running in the hallway and throw a chair to the charge nurse. Patient started screaming and became very aggressive. Patient received Geodon 20 mg IM and put in seclusion. Unable to obtain any information at this moment from the patient. MD Complaint: altered mental status - Related Data Home Medications Medication Instructions Recorded Confirmed Last Taken metFORMIN 500 mg PO BID 08/13/15 01/20/20 1 Day Ago ~04/06/17 Amitriptyline [Elavil] 50 mg PO DAILY 01/20/20 01/20/20 Unknown Insulin Glargine [Lantus VIAL] 23 units SUB-Q QPM 01/20/20 01/20/20 Unknown LORazepam [Lorazepam] 2 mg PO PRN PRN 01/20/20 01/20/20 Unknown Previous Rx's Medication Instructions Recorded Last Taken Type OLANZapine [Zyprexa] 15 mg PO QPM #30 tab 01/21/20 Unknown Rx OXcarbazepine [Trileptal] 300 mg PO BID #60 tab 01/21/20 Unknown Rx Ziprasidone [Geodon] 60 mg PO BID #60 cap 01/21/20 Unknown Rx Allergies Allergy/AdvReac Type Severity Reaction Status Date / Time shrimp Allergy Mild Hives Verified 01/21/20 09:57 dog dander Allergy Hives Verified 01/21/20 09:57 grass pollen Allergy Unknown Verified 01/21/20 09:57 milk Allergy Unknown Verified 01/21/20 09:57 Milk Containing Products Allergy Unknown Verified 01/21/20 09:57 rice Allergy Itching Verified 01/21/20 09:57 EGGS Allergy Rash Uncoded 01/21/20 09:57 ED Review of Systems ROS: Stated complaint: MH EVAL Other details as noted in HPI Comment: Unobtainable due to pts medical conditions ED Past Medical Hx - Past Medical History Hx Diabetes: Yes (Diabetes) Hx Psychiatric Treatment: Yes (schizophrenia, mild mr) - Social History Smoking Status: Unknown if ever smoked - Medications Home Medications: Home Medications Medication Instructions Recorded Confirmed Last Taken Type metFORMIN 500 mg PO BID 08/13/15 01/20/20 1 Day Ago History ~04/06/17 Amitriptyline [Elavil] 50 mg PO DAILY 01/20/20 01/20/20 Unknown History Insulin Glargine [Lantus VIAL] 23 units SUB-Q QPM 01/20/20 01/20/20 Unknown History LORazepam [Lorazepam] 2 mg PO PRN PRN 01/20/20 01/20/20 Unknown History OLANZapine [Zyprexa] 15 mg PO QPM #30 tab 01/21/20 Unknown Rx OXcarbazepine [Trileptal] 300 mg PO BID #60 tab 01/21/20 Unknown Rx Ziprasidone [Geodon] 60 mg PO BID #60 cap 01/21/20 Unknown Rx ED Physical Exam - General General appearance: alert, anxious, other (Agitated) - Head Head exam: Present: atraumatic, normocephalic, normal inspection - Eye Eye exam: Present: normal appearance - ENT ENT exam: Present: normal exam, normal orophraynx, mucous membranes moist - Neck Neck exam: Present: normal inspection, full ROM. Absent: tenderness, meningismus - Respiratory Respiratory exam: Present: normal lung sounds bilaterally - Cardiovascular Cardiovascular Exam: Present: regular rate, normal rhythm, normal heart sounds - GI/Abdominal GI/Abdominal exam: Present: soft, normal bowel sounds. Absent: distended, tenderness, guarding, rebound, rigid, organomegaly, mass, bruit, pulsatile mass, hernia - Extremities Exam Extremities exam: Present: normal inspection, full ROM, normal capillary refill - Back Exam Back exam: Present: normal inspection, full ROM. Absent: CVA tenderness (R), CVA tenderness (L) - Neurological Exam Neurological exam: Present: alert, CN II-XII intact, normal gait. Absent: motor sensory deficit - Psychiatric Psychiatric exam: Present: agitated, manic - Skin Skin exam: Present: warm, intact, normal color ED Course Vital Signs 03/09/20 03/09/20 03/10/20 19:30 20:05 01:36 Temperature 97.5 F L 97.5 F L Pulse Rate 95 H 102 H Respiratory 18 18 18 Rate Blood Pressure 157/97 138/93 [Left] O2 Sat by Pulse 100 97 100 Oximetry 03/10/20 08:18 Temperature 98.6 F Pulse Rate 95 H Respiratory 18 Rate Blood Pressure 140/84 [Left] O2 Sat by Pulse 100 Oximetry ED Medical Decision Making - Lab Data Result diagrams: 03/09/20 18:22 03/09/20 18:22 - Medical Decision Making Patient is 35 years old male with history of schizoaffective disorder and mild MR. Patient brought to the emergency room via EMS after patient tried to jump off his parents car. As soon as he arrived in the emergency room patient start running in the hallway and throw a chair to the charge nurse. Patient started screaming and became very aggressive. Patient received Geodon 20 mg IM and put in seclusion. Unable to obtain any information at this moment from the patient. Patient has been evaluated by our psychiatric team and advised to discharge patient home follow-up as an outpatient. Patient is currently is calm and in no acute distress and cooperative. Patient denied any suicidal or homicidal ideation. No visual auditory hallucination. Patient is medically and psychiatrically stable for discharge. Critical care attestation.: If time is entered above; I have spent that time in minutes in the direct care of this critically ill patient, excluding procedure time. ED Disposition Clinical Impression: Outbursts of explosive behavior, Developmental disability, Acute hyperglycemia Disposition: DC-01 TO HOME OR SELFCARE Is pt being admited?: No Condition: Stable Instructions: Hyperglycemia, Suicidal Feelings: How to Help Yourself Referrals: PRIMARY CARE, [Primary Care Provider] - 3-5 Days
[2020-03-09] MEDS ORDERED: HALOPERIDOL LACTATE 5 MG/1 ML INJ IM ONE (15:09)
[2020-03-09] MEDS ORDERED: LORazepam 2 MG/ML VIAL IM ONE (16:55)
[2020-03-09 18:36] LABS: Basophils % (Auto) 0.5 % (0.0-1.8); Eosinophils # (Auto) 0.1 K/mm3 (0.0-0.4); Eosinophils % (Auto) 1.2 % (0.0-4.3); Hematocrit 40.2 % (35.5-45.6); Hemoglobin 13.2 gm/dl (11.8-15.2); Lymphocytes % (Auto) 23.3 % (13.4-35.0); Mean Corpuscular HGB Conc 33 % (32-34); Mean Corpuscular Volume 85 fl (84-94); Monocytes # (Auto) 0.3 K/mm3 (0.0-0.8); Monocytes % (Auto) 7.5 % (0.0-7.3); Platelet Count 151 K/mm3 (140-440); Red Blood Count 4.73 M/mm3 (3.65-5.03); Red Cell Distribution Width 13.5 % (13.2-15.2)
[2020-03-09 18:53] LABS: BUN/Creatinine Ratio 15; Blood Urea Nitrogen 12 mg/dL (9-20); Calcium 9.4 mg/dL (8.4-10.2); Hemolysis Index 7
[2020-03-10] MEDS ORDERED: LORazepam 2 MG/ML VIAL ONE (03:54)
[2020-03-10] MEDS: LORazepam 2 MG/ML VIAL IM ONE ×2 (03:55→07:17)
[2020-03-10 07:19] LABS: Bilirubin,Urine NEG (Negative); Blood,Urine NEG (Negative); Color,Urine Straw (Yellow); Protein,Urine <15 mg/dL mg/dL (Negative); Urobilinogen,Urine < 2.0 mg/dL (<2.0); WBC,Urine < 1.0 /HPF (0.0-6.0)
[2020-03-10 07:23] LABS: Amphetamine Screen,Urine PRESUMPTIVE NEGATIVE; Benzodiazepines Screen,Urine PRESUMPTIVE NEGATIVE; Cannabinoid Screen,Urine PRESUMPTIVE NEGATIVE; Cocaine Screen,Urine PRESUMPTIVE NEGATIVE; Methadone Screen,Urine PRESUMPTIVE NEGATIVE; Opiate Screen,Urine PRESUMPTIVE NEGATIVE
[2020-03-10 07:39] LABS: RBC,Urine < 1.0 /HPF (0.0-6.0)
[2020-03-10 08:19] VITALS: BP 140/84
[2020-03-10] MEDS ORDERED: DEXTROSE 50% IN WATER (25GM) 50 ML SYRINGE IV PRN (10:44)
--- NOTE | 2020-03-10 10:56 | Consultation ---
History of Present Illness - Reason for Consult Consult date: 03/10/20 Reason for consult: Jumped out of a moving car - History of Present Psychiatric Illness Thomas Melgar is a 35y/o patient with a history of schizoaffective disorder and mild MR who was brought to the ER for attempting to jump out of his parents moving car. It is stated that the patient became aggressive and threw a chair at one of the nurses, and was running in the hallway in the ER. During my interview with the patient he is standing in the door. He is calm and cooperative. He shows me pictures that he's been coloring. He says "I do these at the place I go. I'm supposed to go today." When asking about yesterday and his behavior, the patient states, "I was upset yesterday and I tried to jump of the car." He says "I get upset sometimes and can't control it." When asking the patient has he ev er done that before, he says, "yea, I've jumped out of the care about 4 times." He says "I get upset a lot." When asking the patient did he want to hurt himself or others, he says "no I don't want to hurt nobody." He says "my mind is mental and I have schizophrenia." The patient says "my whole family got schizophrenia." He also denies hallucinations of any kind. PAST PSYCHIATRIC HISTORY: Diagnoses: DD, Schizophrenia Suicide attempts or Self-harm behavior: Denies Prior psychiatric hospitalizations: Yes Substance Abuse history: Denies Previous psychiatric medications tried: could not remember Outpatient treatment: not in years PAST MEDICAL HISTORY: MR Family Psychiatric History: Schizophrenia SOCIAL HISTORY Marital Status: Single Living Arrangements: states lives with mom and two sons Employment Status: Disabled Access to guns/weapons: Denies Education: History of Abuse: Denies Legal History: Denies REVIEW OF SYSTEMS Constitutional: Negative for weight loss ENT: Negative for stridor Respiratory: Negative for cough or hemoptysis All other systems reviewed and are negative MENTAL STATUS EXAMINATION General Appearance and Behavior: Age appropriate, wearing appropriate clothes, good eye contact, calm Cooperation: Cooperative, participating Psychomotor Behavior: Psychomotor normal Mood: Better Affect and affective range: Euthymic Thought Process: Delayed Thought Content: Denies Speech: Normal rate, volume and rhythm Suicidal Ideation: Denies Homicidal Ideation: Denies Hallucinations: Denies Impulse Control: Limited Insight and Judgment: Limited insight and judgment Memory/Cognition: Impaired Attention: Limited Orientation: Alert Assessment and Plan Unspecified Behavioral and Emotional Disorder Treatment Plan d/c 1013 Continue home medications Sitter: Defer to primary Medical: Per primary Disposition: Do not recommend acute inpatient psychiatric treatment at this time. Will sign off. Thank you for this consult. Medications and Allergies Allergies Allergy/AdvReac Type Severity Reaction Status Date / Time shrimp Allergy Mild Hives Verified 01/21/20 09:57 dog dander Allergy Hives Verified 01/21/20 09:57 grass pollen Allergy Unknown Verified 01/21/20 09:57 milk Allergy Unknown Verified 01/21/20 09:57 Milk Containing Products Allergy Unknown Verified 01/21/20 09:57 rice Allergy Itching Verified 01/21/20 09:57 EGGS Allergy Rash Uncoded 01/21/20 09:57 Home Medications Medication Instructions Recorded Confirmed Last Taken Type metFORMIN 500 mg PO BID 08/13/15 01/20/20 1 Day Ago History ~04/06/17 Amitriptyline [Elavil] 50 mg PO DAILY 01/20/20 01/20/20 Unknown History Insulin Glargine [Lantus VIAL] 23 units SUB-Q QPM 01/20/20 01/20/20 Unknown History LORazepam [Lorazepam] 2 mg PO PRN PRN 01/20/20 01/20/20 Unknown History OLANZapine [Zyprexa] 15 mg PO QPM #30 tab 01/21/20 Unknown Rx OXcarbazepine [Trileptal] 300 mg PO BID #60 tab 01/21/20 Unknown Rx Ziprasidone [Geodon] 60 mg PO BID #60 cap 01/21/20 Unknown Rx Active Meds: Active Medications Dextrose (D50w (25gm) Syringe) 50 ml IV Q30MIN PRN; Protocol PRN Reason: Hypoglycemia Insulin Human Regular (Humulin R) 0 unit SUB-Q ACHS JOHNATHAN; Protocol Mental Status Exam - Vital signs Last Vital Signs Temp 98.6 F 03/10/20 08:18 Pulse 95 H 03/10/20 08:18 Resp 18 03/10/20 08:18 BP 140/84 03/10/20 08:18 Pulse Ox 100 03/10/20 08:18 Results Result Diagrams: 03/09/20 18:22 03/09/20 18:22 Abnormal lab results 03/09/20 03/09/20 03/09/20 Range/Units 18:22 18:22 18:22 WBC 4.4 L (4.5-11.0) K/mm3 [place] % (Auto) 7.5 H (0.0-7.3) % Lymph # (Auto) 1.0 L (1.2-5.4) K/mm3 Sodium 128 L (137-145) mmol/L Chloride 91.5 L (98-107) mmol/L Glucose 254 H (75-100) mg/dL POC Glucose (70-105) mg/dL Salicylates < 0.3 L (2.8-20.0) mg/dL Acetaminophen (10.0-30.0) ug/mL 03/09/20 03/10/20 Range/Units 18:22 09:17 WBC (4.5-11.0) K/mm3 [place] % (Auto) (0.0-7.3) % Lymph # (Auto) (1.2-5.4) K/mm3 Sodium (137-145) mmol/L Chloride (98-107) mmol/L Glucose (75-100) mg/dL POC Glucose 378 H (70-105) mg/dL Salicylates (2.8-20.0) mg/dL Acetaminophen 5.0 L (10.0-30.0) ug/mL All other labs normal.
[2020-03-10] MEDS ORDERED: INSULIN REGULAR, HUMAN 100 UNIT/ML 3ML VIAL SUB-Q SCH (11:30)
[2020-03-10] MEDS ORDERED: WATER FOR INJ Sterile (PF) 10 ML ONE (15:12)
[2020-03-10] MEDS ORDERED: ZIPRASIDONE MESYLATE 20 MG VIAL IM ONE ×2 (15:12→15:41)
== END 2020-03-10 15:24 | disposition home or self-care (01) ==
LOC: EEVIPCON 13:43 → ED 13:43
DX: F63.81 Intermittent explosive disorder (principal); F81.9 Developmental disorder of scholastic skills, unspecified; E11.65 Type 2 diabetes mellitus with hyperglycemia; Z79.899 Other long term (current) drug therapy; Z91.013 Allergy to seafood; Z91.011 Allergy to milk products; Z91.012 Allergy to eggs; Z88.8 Allergy status to other drugs, medicaments and biological substances
CPT/HCPCS: 36415; 80048; 80307; 81001; 82962; 85025; 96372; 99284; J1630; J2060; J3486; 80320; G0480; J1815

== ENCOUNTER 2020-07-13 16:40 | Emergency (ER) | payer MEDICAID ==
--- NOTE | 2020-07-13 17:03 | Emergency Department Report ---
Stated Complaint: MENTAL HEALTH - HPI History of Present Illness: This is a 35-year-old male who presents via EMS for a mental health evaluation. I have performed an initial MSE. The patient appears to have a history of schizophrenia and he says something about a history of Asperger's. The patient has been to this facility previously. There was some type of event or altercation at home that required police presence and the patient received Versed and Haldol before he became more calm. During this initial MSE the patient is AAO x4. Medical clearance orders and ED hold orders have been placed. The patient will be dressed out in the green gown and seen for a more comprehensive evaluation. MSE screening note: Focused history and physical exam performed. Due to findings the following was ordered: ED Disposition for MSE Condition: Stable Referrals: PRIMARY CARE, [Primary Care Provider] - 3-5 Days
--- NOTE | 2020-07-13 17:25 | Emergency Department Report ---
HPI - General Time Seen by Provider: 07/13/20 17:16 - HPI HPI: This is a 35-year-old -[place] male presents to the emergency department via EMS from home for a mental health evaluation. Patient is a poor historian either secondary to sedating medications received, or it could be related to his current psychiatric condition. The patient has been here previously and appears to have a history of schizophrenia and this was reiterated by EMS. The patient said something to me about having Asperger's. He mentions that he was urinating outside but is unable to connect the story as to why he is in the hospital. Apparently police were called and on scene. Along with EMS the patient was given Versed and Haldol. The patient says that his brother was nearby and his mother was inside but I do not know whether he had any type of interaction with them. When asked why he thinks the police were called the patient says "because I made a scene" and "that is what I do." We have a list of his medications and EMS says that he has been mostly compliant but has not had them in the past day or so. Currently there is no family at the hospital or bedside for collateral information. Patient appears sleepy but is arousable. Once awake he is able to answer orientation questions appropriately. ED Past Medical Hx - Past Medical History Hx Diabetes: Yes (Diabetes) Hx Psychiatric Treatment: Yes (schizophrenia, mild mr) - Social History Smoking Status: Unknown if ever smoked - Medications Home Medications: Home Medications Medication Instructions Recorded Confirmed Last Taken Type Insulin Glargine [Lantus VIAL] 23 units SUB-Q QPM 01/20/20 07/13/20 Unknown History Divalproex ER [Depakote ER] 1,500 mg PO DAILY 07/13/20 07/13/20 Unknown History Lispro Insulin [HumaLOG] 10 units SUB-Q BID 07/13/20 07/13/20 Unknown History Neomy/Polymyx B/Hc (Otic) Soln 5 drops TID 07/13/20 07/13/20 Unknown History [Cortisporin (Otic) Soln] Ziprasidone 80 mg PO QAM 07/13/20 07/13/20 Unknown History Ziprasidone 160 mg PO QHS 07/13/20 07/13/20 Unknown History traZODone [Desyrel] 450 mg PO DAILY 07/13/20 07/13/20 Unknown History ED Review of Systems ROS: Stated complaint: MENTAL HEALTH Other details as noted in HPI Comment: All other systems reviewed and negative Constitutional: denies: chills, fever Respiratory: denies: cough, shortness of breath Cardiovascular: denies: chest pain, palpitations Gastrointestinal: denies: abdominal pain, vomiting Musculoskeletal: denies: back pain, arthralgia Neurological: denies: headache, weakness Physical Exam - Physical Exam Physical Exam: GENERAL: The patient is well-developed well-nourished. HENT: Normocephalic. Atraumatic. Patient has moist mucous membranes. EYES: Extraocular motions are intact. NECK: Supple. Trachea is midline. CHEST/LUNGS: Clear to auscultation. There is no respiratory distress noted. HEART/CARDIOVASCULAR: Regular. There is no tachycardia. There is no murmur. ABDOMEN: Abdomen is soft, nontender. Patient has normal bowel sounds. SKIN: Skin is warm and dry. NEURO: The patient is awake, alert, and cooperative. MUSCULOSKELETAL: There is no tenderness or deformity. There is no limitation range of motion. ED Course - Reevaluation(s) Reevaluation #1: 07/13/20 22:57 Patient was seen by the mobile crisis unit. After evaluation and discussion with the patient's mother, the patient is safe for discharge back to home. He recently had a medication change that did help with his sleep, but occasionally makes him more aggressive. He has outpatient follow-up with a psychiatrist. ED Medical Decision Making - Lab Data Result diagrams: 07/13/20 17:23 07/13/20 17:23 Lab Results 07/13/20 07/13/20 07/13/20 Range/Units 17:23 17:23 17:23 WBC 2.9 L (4.5-11.0) K/mm3 RBC 4.44 (3.65-5.03) M/mm3 Hgb 12.4 (11.8-15.2) gm/dl Hct 37.8 (35.5-45.6) % MCV 85 (84-94) fl MCH 28 (28-32) pg MCHC 33 (32-34) % RDW 14.6 (13.2-15.2) % Plt Count 122 L (140-440) K/mm3 Lymph % (Auto) 24.2 (13.4-35.0) % [place] % (Auto) 10.2 H (0.0-7.3) % Eos % (Auto) 3.5 (0.0-4.3) % Baso % (Auto) 0.7 (0.0-1.8) % Lymph # (Auto) 0.7 L (1.2-5.4) K/mm3 [place] # (Auto) 0.3 (0.0-0.8) K/mm3 Eos # (Auto) 0.1 (0.0-0.4) K/mm3 Baso # (Auto) 0.0 (0.0-0.1) K/mm3 Seg Neutrophils % 61.4 (40.0-70.0) % Seg Neutrophils # 1.8 (1.8-7.7) K/mm3 Sodium 133 L (137-145) mmol/L Potassium 4.1 (3.6-5.0) mmol/L Chloride 99.7 (98-107) mmol/L Carbon Dioxide 24 (22-30) mmol/L Anion Gap 13 mmol/L BUN 17 (9-20) mg/dL Creatinine 0.8 (0.8-1.3) mg/dL Estimated GFR > 60 ml/min BUN/Creatinine Ratio 21 % Glucose 236 H (75-100) mg/dL Calcium 8.5 (8.4-10.2) mg/dL Valproic Acid < 2.8 L (50-100) ug/mL Plasma/Serum Alcohol (0-0.07) % // Range/Units 17:23 WBC (4.5-11.0) K/mm3 RBC (3.65-5.03) M/mm3 Hgb (11.8-15.2) gm/dl Hct (35.5-45.6) % MCV (84-94) fl MCH (28-32) pg MCHC (32-34) % RDW (13.2-15.2) % Plt Count (140-440) K/mm3 Lymph % (Auto) (13.4-35.0) % [place] % (Auto) (0.0-7.3) % Eos % (Auto) (0.0-4.3) % Baso % (Auto) (0.0-1.8) % Lymph # (Auto) (1.2-5.4) K/mm3 [place] # (Auto) (0.0-0.8) K/mm3 Eos # (Auto) (0.0-0.4) K/mm3 Baso # (Auto) (0.0-0.1) K/mm3 Seg Neutrophils % (40.0-70.0) % Seg Neutrophils # (1.8-7.7) K/mm3 Sodium (137-145) mmol/L Potassium (3.6-5.0) mmol/L Chloride (98-107) mmol/L Carbon Dioxide (22-30) mmol/L Anion Gap mmol/L BUN (9-20) mg/dL Creatinine (0.8-1.3) mg/dL Estimated GFR ml/min BUN/Creatinine Ratio % Glucose (75-100) mg/dL Calcium (8.4-10.2) mg/dL Valproic Acid (50-100) ug/mL Plasma/Serum Alcohol < 0.01 (0-0.07) % - Medical Decision Making This patient was brought into the emergency department via EMS from home after he had some behavioral issues. By the time he presented to the emergency department, and after the patient received some medication, he is calm and cooperative. The patient does appear drowsy at points, most likely secondary to the Versed and Haldol he received, but he is easily arousable. The patient does have some history of a developmental disability but otherwise does not appear to have any acute neurological deficits. His labs have been mostly unremarkable including CBC, metabolic panel, blood alcohol level. The patient had said that he was on Depakote and his Depakote level is subtherapeutic. However, per the crisis unit, the patient recently had medication changes so I do not know if he is still on the Depakote. Initially the patient was seen by the psychiatric transit mechanic who then called for the mobile crisis unit. They came and evaluated the patient in the evening, spoke to the patient's mother, and felt that he is safe for discharge back to the mother's care. He has medications at home and has good outpatient follow-up with a psychiatrist. Critical Care Time: No Critical care attestation.: If time is entered above; I have spent that time in minutes in the direct care of this critically ill patient, excluding procedure time. ED Disposition Clinical Impression: Outbursts of explosive behavior, Developmental disability Disposition: DC-01 TO HOME OR SELFCARE Is pt being admited?: No Condition: Stable Additional Instructions: Please follow-up with your primary care physician, psychiatrist and/or [facility]. Return to the emergency department with any worsening of your symptoms, new or concerning symptoms not addressed during this current emergency department visit, or with any acute distress. Referrals: PRIMARY CARE, [Primary Care Provider] - 2-3 Days Psychiatrist, Your [Other] - 2-3 Days Time of Disposition: 22:45
[2020-07-13 17:58] LABS: BUN/Creatinine Ratio 21; Blood Urea Nitrogen 17 mg/dL (9-20); Calcium 8.5 mg/dL (8.4-10.2); Hemolysis Index 7
[2020-07-13 18:07] LABS: Basophils % (Auto) 0.7 % (0.0-1.8); Eosinophils # (Auto) 0.1 K/mm3 (0.0-0.4); Eosinophils % (Auto) 3.5 % (0.0-4.3); Hematocrit 37.8 % (35.5-45.6); Hemoglobin 12.4 gm/dl (11.8-15.2); Lymphocytes # (Auto) 0.7 K/mm3 (1.2-5.4); Lymphocytes % (Auto) 24.2 % (13.4-35.0); Mean Corpuscular HGB Conc 33 % (32-34); Mean Corpuscular Volume 85 fl (84-94); Monocytes # (Auto) 0.3 K/mm3 (0.0-0.8); Monocytes % (Auto) 10.2 % (0.0-7.3); Platelet Count 122 K/mm3 (140-440); Red Blood Count 4.44 M/mm3 (3.65-5.03); Red Cell Distribution Width 14.6 % (13.2-15.2)
[2020-07-13 22:49] VITALS: BP 105/66
== END 2020-07-14 00:47 | disposition home or self-care (01) ==
LOC: ED 16:40
DX: F81.9 Developmental disorder of scholastic skills, unspecified (principal); F63.81 Intermittent explosive disorder; E11.9 Type 2 diabetes mellitus without complications; F20.9 Schizophrenia, unspecified; Z79.4 Long term (current) use of insulin; Z79.899 Other long term (current) drug therapy; Z91.013 Allergy to seafood; Z91.011 Allergy to milk products; Z88.8 Allergy status to other drugs, medicaments and biological substances
CPT/HCPCS: 36415; 80048; 80164; 80320; 85025; G0480

== ENCOUNTER 2021-11-26 23:21 | Emergency (ER) | payer MEDICAID ==
[2021-11-27] MEDS ORDERED: ZIPRASIDONE MESYLATE 20 MG VIAL IM ONE ×2 (00:46→05:38)
[2021-11-27] MEDS ORDERED: WATER FOR INJ Sterile (PF) 10 ML ONE (01:21)
--- NOTE | 2021-11-27 04:09 | Emergency Department Report ---
ED Psych HPI - General Chief Complaint: Psych Stated Complaint: MENTAL HEALTH Time Seen by Provider: 11/27/21 00:46 Source: patient Mode of arrival: Ambulatory - History of Present Illness Initial Comments: Patient is a 36-year-old male with history of schizophrenia presenting to the emergency department for evaluation of multiple cuts/excoriations on his body. Reportedly dropped off by police. Patient appears to be agitated and somewhat confused. He is yelling obscenities and throwing his clothes/shoes. - Related Data Home Medications Medication Instructions Recorded Confirmed Last Taken Insulin Glargine [Lantus VIAL] 23 units SUB-Q QPM 01/20/20 07/13/20 Unknown Divalproex ER [Depakote ER] 1,500 mg PO DAILY 07/13/20 07/13/20 Unknown Lispro Insulin [HumaLOG] 10 units SUB-Q BID 07/13/20 07/13/20 Unknown Neomy/Polymyx B/Hc (Otic) Soln 5 drops TID 07/13/20 07/13/20 Unknown [Cortisporin (Otic) Soln] Ziprasidone 80 mg PO QAM 07/13/20 07/13/20 Unknown Ziprasidone 160 mg PO QHS 07/13/20 07/13/20 Unknown traZODone [Desyrel] 450 mg PO DAILY 07/13/20 07/13/20 Unknown Allergies Allergy/AdvReac Type Severity Reaction Status Date / Time shrimp Allergy Mild Hives Verified 07/13/20 17:29 dog dander Allergy Hives Verified 07/13/20 17:29 grass pollen Allergy Unknown Verified 07/13/20 17:29 milk Allergy Unknown Verified 07/13/20 17:29 Milk Containing Products Allergy Unknown Verified 07/13/20 17:29 rice Allergy Itching Verified 07/13/20 17:29 EGGS Allergy Rash Uncoded 07/13/20 17:29 ED Review of Systems ROS: Stated complaint: MENTAL HEALTH Other details as noted in HPI Comment: Unobtainable due to pts medical conditions ED Past Medical Hx - Past Medical History Hx Diabetes: Yes (Diabetes) Hx Psychiatric Treatment: Yes (schizophrenia, mild mr) - Social History Smoking Status: Unknown if ever smoked - Medications Home Medications: Home Medications Medication Instructions Recorded Confirmed Last Taken Type Insulin Glargine [Lantus VIAL] 23 units SUB-Q QPM 01/20/20 07/13/20 Unknown History Divalproex ER [Depakote ER] 1,500 mg PO DAILY 07/13/20 07/13/20 Unknown History Lispro Insulin [HumaLOG] 10 units SUB-Q BID 07/13/20 07/13/20 Unknown History Neomy/Polymyx B/Hc (Otic) Soln 5 drops TID 07/13/20 07/13/20 Unknown History [Cortisporin (Otic) Soln] Ziprasidone 80 mg PO QAM 07/13/20 07/13/20 Unknown History Ziprasidone 160 mg PO QHS 07/13/20 07/13/20 Unknown History traZODone [Desyrel] 450 mg PO DAILY 07/13/20 07/13/20 Unknown History ED Physical Exam - General Limitations: Altered Mental Status General appearance: alert, other (Agitated) - Head Head exam: Present: atraumatic, normocephalic - Respiratory Respiratory exam: Present: normal lung sounds bilaterally. Absent: respiratory distress - Cardiovascular Cardiovascular Exam: Present: regular rate, normal rhythm, normal heart sounds - GI/Abdominal GI/Abdominal exam: Present: soft. Absent: distended, tenderness - Neurological Exam Neurological exam: Present: alert - Psychiatric Psychiatric exam: Present: agitated, manic - Skin Skin exam: Present: warm, dry, other (Scattered excoriations over body in various stages of healing) ED Course Vital Signs 11/27/21 11/27/21 01:33 01:34 Temperature 98.9 F Pulse Rate 87 Respiratory 16 Rate Blood Pressure 135/107 [Right] O2 Sat by Pulse 100 100 Oximetry ED Medical Decision Making - Medical Decision Making Patient with history of schizophrenia presenting to emergency department and what appears to be a manic state. BERNICE Edwards ordered. 1013 signed. Will obtain labs and mental health evaluation. Critical care attestation.: If time is entered above; I have spent that time in minutes in the direct care of this critically ill patient, excluding procedure time. ED Disposition Clinical Impression: Acute psychosis, Manic episode, Agitation Disposition: 30 STILL A PATIENT Is pt being admited?: No Condition: Stable
[2021-11-27 09:37] LABS: BUN/Creatinine Ratio 40; Blood Urea Nitrogen 28 mg/dL (9-20); Calcium 10.7 mg/dL (8.4-10.2); Hemolysis Index 5
--- NOTE | 2021-11-27 12:00 | Consultation ---
History of Present Illness - Reason for Consult Consult date: 11/27/21 Reason for consult: agitation - History of Present Psychiatric Illness the patient was seen today. He is in seclusion. He is agitated and talking loudly. He is difficulty to follow. He is later observed staring at the wall and talking to it. He is moving his hand up and about as if talking to someone. PAST PSYCHIATRIC HISTORY: Unable to assess PAST MEDICAL HISTORY: Unable to assess SOCIAL HISTORY Unable to assess REVIEW OF SYSTEMS Unable to assess MENTAL STATUS Unable to assess Diagnosis: Schizophrenia Treatment Plan [address] 125mg po BID Geodon 20mg po BID Trazodone 50mg po qhs Geodon 20mg IM qh6 prn agitation Medical: per primary Disposition: Recommend acute psychiatric inpatient treatment Will follow. Thanks Case staffed with Dr. Easley. Medications and Allergies Allergies Allergy/AdvReac Type Severity Reaction Status Date / Time shrimp Allergy Mild Hives Verified 07/13/20 17:29 dog dander Allergy Hives Verified 07/13/20 17:29 grass pollen Allergy Unknown Verified 07/13/20 17:29 milk Allergy Unknown Verified 07/13/20 17:29 Milk Containing Products Allergy Unknown Verified 07/13/20 17:29 rice Allergy Itching Verified 07/13/20 17:29 EGGS Allergy Rash Uncoded 07/13/20 17:29 Home Medications Medication Instructions Recorded Confirmed Last Taken Type Insulin Glargine [Lantus VIAL] 23 units SUB-Q QPM 01/20/20 07/13/20 Unknown History Divalproex ER [Depakote ER] 1,500 mg PO DAILY 07/13/20 07/13/20 Unknown History Lispro Insulin [HumaLOG] 10 units SUB-Q BID 07/13/20 07/13/20 Unknown History Neomy/Polymyx B/Hc (Otic) Soln 5 drops TID 07/13/20 07/13/20 Unknown History [Cortisporin (Otic) Soln] Ziprasidone 80 mg PO QAM 07/13/20 07/13/20 Unknown History Ziprasidone 160 mg PO QHS 07/13/20 07/13/20 Unknown History traZODone [Desyrel] 450 mg PO DAILY 07/13/20 07/13/20 Unknown History Mental Status Exam - Vital signs Last Vital Signs Temp 98.9 F 11/27/21 01:33 Pulse 87 11/27/21 01:33 Resp 16 11/27/21 01:33 BP 135/107 11/27/21 01:33 Pulse Ox 100 11/27/21 01:34 Results Result Diagrams: 11/27/21 06:59 Abnormal lab results 11/27/21 11/27/21 11/27/21 Range/Units 06:59 06:59 06:59 Carbon Dioxide 19 L (22-30) mmol/L BUN 28 H (9-20) mg/dL Creatinine 0.7 L (0.8-1.3) mg/dL Glucose 271 H (75-100) mg/dL Calcium 10.7 H (8.4-10.2) mg/dL Salicylates < 0.3 L (2.8-20.0) mg/dL Acetaminophen 5.0 L (10.0-30.0) ug/mL All other labs normal.
[2021-11-27] MEDS: ZIPRASIDONE MESYLATE 20 MG VIAL IM PRN (12:22)
[2021-11-27] MEDS ORDERED: DEXTROSE 50% IN WATER (25GM) 50 ML SYRINGE IV PRN (12:33)
[2021-11-27] MEDS ORDERED: MIDAZOLAM 2 MG/2 ML INJ IM PRN (12:34)
[2021-11-27] MEDS ORDERED: HALOPERIDOL LACTATE 5 MG/1 ML INJ IM PRN (12:34)
--- NOTE | 2021-11-27 12:36 | Event Note ---
Date: 11/27/21 Patient seen and examined. He is resting comfortably on his side. He has been agitated. He refused lunch but ate breakfast. As needed medications have been ordered. Psychiatric recommendations are reviewed and appreciated. Continue insulin, and sliding scale. Initiate consistent carbohydrate diet. Currently awaiting CBC, UA, UDS and COVID swab. We will also add on Depakote level. The emergency room follow along as the patient laboratory studies result Vital Signs 11/27/21 11/27/21 01:33 01:34 Temperature 98.9 F Pulse Rate 87 Respiratory 16 Rate Blood Pressure 135/107 [Right] O2 Sat by Pulse 100 100 Oximetry Lab Results 11/27/21 11/27/21 11/27/21 Range/Units 06:59 06:59 06:59 Sodium 142 (137-145) mmol/L Potassium 4.9 (3.6-5.0) mmol/L Chloride 99.1 (98-107) mmol/L Carbon Dioxide 19 L (22-30) mmol/L Anion Gap 29 mmol/L BUN 28 H (9-20) mg/dL Creatinine 0.7 L (0.8-1.3) mg/dL Estimated GFR > 60 ml/min BUN/Creatinine Ratio 40 % Glucose 271 H (75-100) mg/dL Calcium 10.7 H (8.4-10.2) mg/dL Salicylates < 0.3 L (2.8-20.0) mg/dL Acetaminophen 5.0 L (10.0-30.0) ug/mL Valproic Acid (50-100) ug/mL Plasma/Serum Alcohol (0-0.07) % SARS-CoV-2 (PCR) (Negative) 11/27/21 11/27/21 11/27/21 Range/Units 06:59 06:59 12:38 Sodium (137-145) mmol/L Potassium (3.6-5.0) mmol/L Chloride (98-107) mmol/L Carbon Dioxide (22-30) mmol/L Anion Gap mmol/L BUN (9-20) mg/dL Creatinine (0.8-1.3) mg/dL Estimated GFR ml/min BUN/Creatinine Ratio % Glucose (75-100) mg/dL Calcium (8.4-10.2) mg/dL Salicylates (2.8-20.0) mg/dL Acetaminophen (10.0-30.0) ug/mL Valproic Acid < 2.8 L (50-100) ug/mL Plasma/Serum Alcohol < 0.01 (0-0.07) % SARS-CoV-2 (PCR) Negative (Negative) Serum toxicology studies reviewed, appreciated, and are essentially unremarkable
[2021-11-27] MEDS: DIVALPROEX DR 125 MG TAB PO SCH ×2 (14:35→22:01)
[2021-11-27] MEDS: INSULIN REGULAR, HUMAN 100 UNITS/1 ML SUB-Q SCH ×2 (14:35→21:47)
[2021-11-27] MEDS: ZIPRASIDONE 20 MG CAP PO SCH ×2 (14:35→22:01)
[2021-11-27] MEDS: INSULIN GLARGINE 100 UNITS/ML SUB-Q SCH (21:47)
[2021-11-27] MEDS: traZODone 50 MG TAB PO SCH (22:01)
[2021-11-27] MEDS: INSULIN LISPRO 100 UNIT/ML SUB-Q SCH (23:24)
[2021-11-28] MEDS: INSULIN REGULAR, HUMAN 100 UNITS/1 ML SUB-Q SCH (02:44)
[2021-11-28] MEDS: ZIPRASIDONE MESYLATE 20 MG VIAL IM PRN (09:00)
--- NOTE | 2021-11-28 09:30 | Progress Note ---
Subjective - Reason for Consult Consult date: 11/28/21 Reason for consult: psychosis, agitation - Chief Complaint Chief complaint: The patient was seen today. He is in seclusion. He is loud and talking to people not there. He is agitated. Security says the patient has been yelling and agitated. REVIEW OF SYSTEMS Unable to assess MENTAL STATUS Unable to assess Diagnosis: Schizophrenia Treatment Plan 1013 Geodon 20mg IM x one Now Increase Depakote DR 250mg po BID Geodon 20mg po BID Trazodone 50mg po qhs Geodon 20mg IM qh6 prn agitation Medical: per primary Disposition: Recommend acute psychiatric inpatient treatment Will follow. Thanks Case staffed with Dr. Easley. Mental Status Exam - Vital signs Last Vital Signs Temp 97.8 F 11/27/21 19:57 Pulse 60 11/27/21 19:57 Resp 20 11/27/21 19:57 BP 132/60 11/27/21 19:57 Pulse Ox 100 11/27/21 22:54
[2021-11-28] MEDS: DIVALPROEX DR 250 MG TAB PO SCH (09:59)
[2021-11-28] MEDS: ZIPRASIDONE 20 MG CAP PO SCH (09:59)
--- NOTE | 2021-11-28 11:56 | Event Note ---
Date: 11/28/21 S: Patient reportedly manic yelling and screaming this morning in addition to kicking a wall requiring sedation O: Vital Signs - 24 hr 11/27/21 11/27/21 11/27/21 13:17 19:57 22:54 Temperature 97.8 F Pulse Rate 60 Respiratory 20 Rate Blood Pressure 132/60 [Right] O2 Sat by Pulse 96 98 100 Oximetry 11/28/21 11:05 Temperature Pulse Rate Respiratory Rate Blood Pressure [Right] O2 Sat by Pulse 98 Oximetry E: Schizophrenia P: 1013/awaiting inpatient psych
[2021-11-28 12:07] LABS: Mucus,Urine 1+ /HPF
[2021-11-28 12:17] LABS: Bilirubin,Urine Negative (Negative); Blood,Urine Negative (Negative); Color,Urine Yellow (Yellow); Urobilinogen,Urine < 2.0 mg/dL (<2.0)
[2021-11-28 12:19] LABS: Amphetamine Screen,Urine Negative; Benzodiazepines Screen,Urine Negative; Cannabinoid Screen,Urine Negative; Cocaine Screen,Urine Negative; Methadone Screen,Urine Negative; Opiate Screen,Urine Negative
--- NOTE | 2021-11-29 11:00 | Progress Note ---
Subjective - Reason for Consult Consult date: 11/29/21 Reason for consult: psychosis - Chief Complaint Chief complaint: The patient was seen today. He is in seclusion. He is still acutely psychotic. He is standing and staring at the wall. He is talking out loud to it. He has urinated on the floor. The patient asks me "how come today is Sunday?" He then starts ranting off non related things, like "clippers, the egos with the black pants, and purple head bands." REVIEW OF SYSTEMS Unable to assess MENTAL STATUS Unable to assess Diagnosis: Schizophrenia Treatment Plan [address] 250mg po BID Increase Geodon 40mg po BID Trazodone 50mg po qhs Geodon 20mg IM qh6 prn agitation Medical: per primary Disposition: Recommend acute psychiatric inpatient treatment Will follow. Thanks Case staffed with Dr. Easley. Mental Status Exam - Vital signs Last Vital Signs Temp 97.3 F L 11/29/21 03:48 Pulse 78 11/29/21 03:48 Resp 18 11/29/21 03:48 BP 121/87 11/29/21 03:48 Pulse Ox 100 11/29/21 03:48
--- NOTE | 2021-11-29 11:17 | Emergency Department Report ---
Blank Doc - Documentation Documentation: Chart reviewed. 36-year-old male still exhibiting psychosis currently on a 10 13. For some reason patient has not received a CBC result that was ordered 2 days ago on the . CBC reordered. Discussed with nurse who states she will assist with blood collection. Placement pending
[2021-11-29] MEDS: DIVALPROEX DR 250 MG TAB PO SCH ×2 (11:36→22:00)
[2021-11-29] MEDS ORDERED: IBUPROFEN 800 MG TAB PO ONE (11:51)
[2021-11-29 11:55] LABS: Basophils % (Auto) 0.2 % (0.0-1.8); Eosinophils % (Auto) 0.1 % (0.0-4.3); Hematocrit 41.9 % (35.5-45.6); Hemoglobin 13.6 gm/dl (11.8-15.2); Lymphocytes # (Auto) 0.7 K/mm3 (1.2-5.4); Mean Corpuscular HGB Conc 32 % (32-34); Mean Corpuscular Volume 87 fl (84-94); Monocytes # (Auto) 0.2 K/mm3 (0.0-0.8); Monocytes % (Auto) 4.9 % (0.0-7.3); Platelet Count 189 K/mm3 (140-440); Red Blood Count 4.83 M/mm3 (3.65-5.03); Red Cell Distribution Width 13.2 % (13.2-15.2)
[2021-11-29] MEDS: INSULIN REGULAR, HUMAN 100 UNITS/1 ML SUB-Q SCH ×2 (12:14→22:00)
[2021-11-29] MEDS: INSULIN GLARGINE 100 UNITS/ML SUB-Q SCH (19:00)
[2021-11-29] MEDS: INSULIN LISPRO 100 UNIT/ML SUB-Q SCH (22:00)
[2021-11-29] MEDS: ZIPRASIDONE 40 MG CAP PO SCH (22:00)
[2021-11-29] MEDS: traZODone 50 MG TAB PO SCH (22:00)
[2021-11-30] MEDS: INSULIN REGULAR, HUMAN 100 UNITS/1 ML SUB-Q SCH ×4 (01:00→19:47)
[2021-11-30] MEDS: ZIPRASIDONE MESYLATE 20 MG VIAL IM PRN (03:08)
[2021-11-30] MEDS: DIVALPROEX DR 250 MG TAB PO SCH (10:16)
[2021-11-30] MEDS: ZIPRASIDONE 40 MG CAP PO SCH ×2 (10:17→22:17)
--- NOTE | 2021-11-30 11:26 | Progress Note ---
Subjective - Reason for Consult Consult date: 11/30/21 Reason for consult: psychsis - Chief Complaint Chief complaint: The patient was seen today. He is in seclusion. He is disorganized. The patient is standing naked with a sheet wrapped around him. He is yelling at the acuña. REVIEW OF SYSTEMS Unable to assess MENTAL STATUS Unable to assess Diagnosis: Schizophrenia Treatment Plan [address] 500mg po BID Increase Geodon 40mg po BID Trazodone 50mg po qhs Geodon 20mg IM qh6 prn agitation Medical: per primary Disposition: Recommend acute psychiatric inpatient treatment Will follow. Thanks Case staffed with Dr. Easley. Mental Status Exam - Vital signs Last Vital Signs Temp 97.3 F L 11/29/21 03:48 Pulse 78 11/29/21 03:48 Resp 18 11/29/21 03:48 BP 121/87 11/29/21 03:48 Pulse Ox 100 11/29/21 03:48
--- NOTE | 2021-11-30 13:05 | Event Note ---
Date: 11/30/21 S: Patient remains hyperactive behaving appropriately walking around naked requiring seclusion. O: Vital Signs - 24 hr 11/30/21 11/30/21 11:36 11:42 Temperature 98.7 F 98.7 F Pulse Rate 81 81 Respiratory 19 18 Rate Blood Pressure 128/85 Blood Pressure 128/85 [Right] O2 Sat by Pulse 100 100 Oximetry A: Schizophrenia P: 1013/awaiting inpatient psych
[2021-11-30] MEDS: DIVALPROEX DR 500 MG TAB PO SCH ×2 (17:15→22:18)
[2021-11-30] MEDS: INSULIN LISPRO 100 UNIT/ML SUB-Q SCH ×2 (18:30→23:09)
[2021-11-30] MEDS: INSULIN GLARGINE 100 UNITS/ML SUB-Q SCH (18:32)
[2021-11-30] MEDS: traZODone 50 MG TAB PO SCH ×2 (22:17→22:19)
[2021-12-01] MEDS: INSULIN REGULAR, HUMAN 100 UNITS/1 ML SUB-Q SCH ×2 (03:04→07:31)
--- NOTE | 2021-12-01 09:31 | Progress Note ---
Subjective - Reason for Consult Consult date: 12/01/21 Reason for consult: psychosis - Chief Complaint Chief complaint: The patient was seen today. The patient has a mental disability. He is more organized today. The patient was calm and cooperative. Security moved him to another room as we were speaking. The patient denies SI/HI. He says he has schizophrenia and hears voices sometimes. He gives me his mother's number to call. He denies SI/HI. I spoke with the patient's mother about his progress. She was happy to hear the patient is doing better. She says her son is a good boy. She says she felt that he needed more medication and something to help him remain calm. I informed mom that I had adjusted the patient's medication. She says he sees a psychiatrist regularly and has a behavioral therapist. REVIEW OF SYSTEMS Unable to assess MENTAL STATUS Unable to assess Diagnosis: Schizophrenia Treatment Plan d/c [address] 500mg po BID Geodon 40mg po BID Trazodone 50mg po qhs Klonopin 0.5mg po BID prn anxiety Medical: per primary Disposition: Do not recommend acute psychiatric inpatient treatment. The patient can now be managed on an outpatient basis. He is to discharge to mom's care. Economic Adviser to give all necessary resources Will sign off. Thanks Case staffed with Dr. Easley. Mental Status Exam - Vital signs Last Vital Signs Temp 97.4 F L 11/30/21 23:37 Pulse 85 11/30/21 23:37 Resp 18 11/30/21 23:37 BP 128/82 11/30/21 23:37 Pulse Ox 99 12/01/21 07:38
[2021-12-01] MEDS: INSULIN LISPRO 100 UNIT/ML SUB-Q SCH (09:38)
[2021-12-01] MEDS: ZIPRASIDONE 40 MG CAP PO SCH (10:10)
[2021-12-01] MEDS: DIVALPROEX DR 500 MG TAB PO SCH (10:10)
[2021-12-01 11:40] VITALS: BP 140/90
== END 2021-12-01 17:39 | disposition home or self-care (01) ==
LOC: ED 23:21 → EEVIPCON 23:21 → ED 12-01 17:39
DX: F23 Brief psychotic disorder (principal); F31.9 Bipolar disorder, unspecified; R45.1 Restlessness and agitation; E11.9 Type 2 diabetes mellitus without complications; Z20.822 Contact with and (suspected) exposure to COVID-19; Z91.012 Allergy to eggs; Z91.011 Allergy to milk products; Z91.013 Allergy to seafood; Z91.09 Other allergy status, other than to drugs and biological substances; Z79.899 Other long term (current) drug therapy
CPT/HCPCS: 36415; 80048; 80164; 80307; 81001; 82962; 85025; 87086; 96372; 99284; J1630; J3486; U0003; 80320; Q9967; G0480; J1815